=== PATIENT | female | born 1955 | race Caucasian/White ===

== ENCOUNTER → 2016-11-16 | Outpatient (CLI) | payer MEDICAID ==
[2016-11-16 10:32] VITALS: BP 146/73; PULSE 66; RESP 15; TEMP 97.9; BMI 58.3
--- NOTE | 2016-11-16 10:47 | P.HPBAR ---
Bariatric H&P - History & Physicial H&P Date: 11/16/16 History & Physicial: Visit/CC: band fill Patient initial contact: Initial weight: 139.117 kg Initial weight in pounds: 306.70 Height: 5 ft 1 in Initial BMI: 57.9 Last weight: Current weight: 139.979 kg Current weight in pounds: 308.60 Current BMI: 58.3 [place] body weight (based on NIH guidelines): 47.627 kg Excess body weight loss: The patient is a 61 year-old F who presents for Bariatric Assessment. The patient presents today for lap band fill. She currently feels hungry. Past Medical History Past Medical History: Asthma, GERD/Reflux, Hypertension, Sleep Apnea/CPAP/BIPAP , Thyroid Disorder Additional Past Medical History / Comment(s): left knee injury w/torn tendon and steroid injection, hypothroid, gout, uses CPAP, past hx. arrythmia-no tx. needed (March 2016 asthma exacarbation led to ER and then PCP f/u), dry eyes History of Any Multi-Drug Resistant Organisms: None Reported Past Surgical History: Bariatric Surgery, Hernia Repair, Orthopedic Surgery Additional Past Surgical History / Comment(s): lapband placed 2002, ganglian cyst, carpal tunnel, tear duct surgery 2017 secondary to dry eyes Past Anesthesia/Blood Transfusion Reactions: Previous Problems w/ Anesthesia Additional Past Anesthesia/Blood Transfusion Reaction / Comm: slow to wake up from anesthesia Past Psychological History: No Psychological Hx Reported Smoking Status: Never smoker Past Alcohol Use History: Rare Past Drug Use History: None Reported - Past Family History Mother Family Medical History: Cancer, Hypertension Additional Family Medical History / Comment(s): cancer in lymph nodes, Surgical - Exam Vital Signs Temp Pulse Resp BP 97.9 F 66 15 146/73 11/16/16 10:28 11/16/16 10:28 11/16/16 10:28 11/16/16 10:28 - General well developed, no distress - Eyes PERRL - ENT normal pinna - Neck no masses - Respiratory normal expansion - Cardiovascular Rhythm: regular - Abdomen Abdomen: soft, non tender Bariatric Assessment & Plan Plan: The patient's lap band was adjusted. She had 0.3 mL added to her LAP-BAND. She currently has 2.6 mL in the band. She'll follow-up in one month. Bariatric Checklist Checklist: Plan: Checklist: EGD: 1. Hiatal hernia: 2. H. Pylori: HgbA1c: Vitamin D: Smoking: Never smoker Primary care physician referral: Dr.Loretta Castillo ([place]) Psychiatry clearance: Cardiology clearance: Sleep study: Diet journal: VTE risk score: VTE risk level: Rehab needs at discharge:
== END | disposition home or self-care (01) ==
LOC: BARWHC3 10:02
PROVIDERS: ATTEND Surgery
DX: Z48.815 Encounter for surgical aftercare following surgery on the digestive system (principal); I10 Essential (primary) hypertension; Z98.84 Bariatric surgery status
CPT/HCPCS: 99212

== ENCOUNTER → 2017-11-22 | Outpatient (CLI) | payer MEDICAID ==
[2017-11-22 13:42] VITALS: BP 161/96; PULSE 64; RESP 16; TEMP 97.9; BMI 52.0
--- NOTE | 2017-11-22 17:05 | P.HPBAR ---
Bariatric H&P - History & Physicial H&P Date: 11/22/17 History & Physicial: Visit/CC: band adj Patient initial contact: Initial weight: 139.117 kg Initial weight in pounds: 306.70 Height: 5 ft 1 in Initial BMI: 57.9 Last weight: Current weight: 124.823 kg Current weight in pounds: 275.19 Current BMI: 52.0 [place] body weight (based on NIH guidelines): 47.627 kg Excess body weight loss: 15.6% The patient is a 62 year-old F who presents for Bariatric Assessment. The patient presents today for bariatric follow-up. She has lost 38 pounds her last visit. She has some mild GERD. Past Medical History Past Medical History: Asthma, GERD/Reflux, Hypertension, Sleep Apnea/CPAP/BIPAP , Thyroid Disorder Additional Past Medical History / Comment(s): left knee injury w/torn tendon and steroid injection, hypothroid, gout, uses CPAP, past hx. arrythmia-no tx. needed (March 2016 asthma exacarbation led to ER and then PCP f/u), dry eyes History of Any Multi-Drug Resistant Organisms: None Reported Past Surgical History: Bariatric Surgery, Hernia Repair, Orthopedic Surgery Additional Past Surgical History / Comment(s): lapband placed 2002, ganglian cyst, carpal tunnel, tear duct surgery 2016 secondary to dry eyes Past Anesthesia/Blood Transfusion Reactions: Previous Problems w/ Anesthesia Additional Past Anesthesia/Blood Transfusion Reaction / Comm: slow to wake up from anesthesia Past Psychological History: No Psychological Hx Reported Smoking Status: Never smoker Past Alcohol Use History: Rare Past Drug Use History: None Reported - Past Family History Mother Family Medical History: Cancer, Hypertension Additional Family Medical History / Comment(s): cancer in lymph nodes, Surgical - Exam Vital Signs Temp Pulse Resp BP 97.9 F 64 16 161/96 11/22/17 13:38 11/22/17 13:38 11/22/17 13:38 11/22/17 13:38 - General well developed, well nourished - Eyes PERRL - ENT normal pinna - Neck no masses - Respiratory normal expansion - Cardiovascular Rhythm: regular - Abdomen Abdomen: soft, non tender Bariatric Assessment & Plan Plan: Morbid obesity. Patient LAP-BAND was not adjusted. Her GERD symptoms are minimal she'll be observed. Patient was asking for referral to orthopedic surgeon I gave her the name of Dr. Desi Olivier. She'll follow-up in 8 weeks. Bariatric Checklist Checklist: Plan: Checklist: EGD: 1. Hiatal hernia: 2. H. Pylori: HgbA1c: Vitamin D: Smoking: Never smoker Primary care physician referral: Dr.Loretta Castillo ([place]) Psychiatry clearance: Cardiology clearance: Sleep study: Diet journal: VTE risk score: VTE risk level: Rehab needs at discharge:
== END | disposition home or self-care (01) ==
LOC: BARWHC3 12:57
PROVIDERS: ATTEND Surgery
DX: Z46.51 Encounter for fitting and adjustment of gastric lap band (principal); E66.01 Morbid (severe) obesity due to excess calories; G47.30 Sleep apnea, unspecified; I10 Essential (primary) hypertension; J45.909 Unspecified asthma, uncomplicated; Z98.84 Bariatric surgery status; Z99.89 Dependence on other enabling machines and devices; Z68.43 Body mass index [BMI] 50.0-59.9, adult
CPT/HCPCS: 97803; 99212

== ENCOUNTER → 2018-01-31 | Outpatient (CLI) | payer MEDICAID ==
--- NOTE | 2018-01-31 13:51 | P.HPBAR ---
Bariatric H&P - History & Physicial H&P Date: 01/31/18 History & Physicial: Visit/CC: Patient initial contact: Initial weight: 139.117 kg Initial weight in pounds: Height: Initial BMI: Last weight: Current weight: Current weight in pounds: Current BMI: [place] body weight (based on NIH guidelines): Excess body weight loss: The patient is a 62 year-old F who presents for Bariatric Assessment. Patient presents today for LAP-BAND adjustment. She states that she may need a small fill. The patient is fairly scheduled for left knee arthroscopy in 2 weeks. She has lost 6 pounds since her last visit. Past Medical History Past Medical History: Asthma, GERD/Reflux, Hypertension, Sleep Apnea/CPAP/BIPAP , Thyroid Disorder Additional Past Medical History / Comment(s): left knee injury w/torn tendon and steroid injection, hypothroid, gout, uses CPAP, past hx. arrythmia-no tx. needed (March 2016 asthma exacarbation led to ER and then PCP f/u), dry eyes History of Any Multi-Drug Resistant Organisms: None Reported Past Surgical History: Bariatric Surgery, Hernia Repair, Orthopedic Surgery Additional Past Surgical History / Comment(s): lapband placed 2002, ganglian cyst, carpal tunnel, tear duct surgery 2017 secondary to dry eyes Past Anesthesia/Blood Transfusion Reactions: Previous Problems w/ Anesthesia Additional Past Anesthesia/Blood Transfusion Reaction / Comm: slow to wake up from anesthesia Past Psychological History: No Psychological Hx Reported Smoking Status: Never smoker Past Alcohol Use History: Rare Past Drug Use History: None Reported - Past Family History Mother Family Medical History: Cancer, Hypertension Additional Family Medical History / Comment(s): cancer in lymph nodes, Surgical - Exam - General well developed, no distress - Eyes PERRL - ENT normal pinna - Abdomen Abdomen: soft, non tender Bariatric Assessment & Plan Plan: Morbid obesity. Osteoarthritis. Patient's BMI is still over 40. Her LAP-BAND was not adjusted today due to her upcoming left knee arthroscopy. She'll follow -up in one month. Bariatric Checklist Checklist: Plan: Checklist: EGD: 1. Hiatal hernia: 2. H. Pylori: HgbA1c: Vitamin D: Smoking: Never smoker Primary care physician referral: Dr.Loretta Castillo ([place]) Psychiatry clearance: Cardiology clearance: Sleep study: Diet journal: VTE risk score: VTE risk level: Rehab needs at discharge:
[2018-01-31 16:09] VITALS: BP 148/78; PULSE 75; TEMP 98.6; BMI 50.8
== END | disposition home or self-care (01) ==
LOC: BARWHC3 12:47
PROVIDERS: ATTEND Surgery
DX: Z46.51 Encounter for fitting and adjustment of gastric lap band (principal); E66.01 Morbid (severe) obesity due to excess calories; K21.9 Gastro-esophageal reflux disease without esophagitis; M19.90 Unspecified osteoarthritis, unspecified site; G47.30 Sleep apnea, unspecified; S89.92XS Unspecified injury of left lower leg, sequela; J45.909 Unspecified asthma, uncomplicated; Z79.52 Long term (current) use of systemic steroids; Z98.84 Bariatric surgery status; Z98.890 Other specified postprocedural states; Z99.89 Dependence on other enabling machines and devices; Z68.41 Body mass index [BMI] 40.0-44.9, adult
CPT/HCPCS: 99211

== ENCOUNTER → 2018-01-31 | Outpatient (CLI) | payer MEDICAID ==
[2018-01-31 14:06] LABS: Basophils % (A) 0 %; Eosinophils # (A) 0.1 k/uL (0-0.7); Eosinophils % (A) 2 %; HCT 41.8 % (34.0-46.0); HGB 13.3 gm/dL (11.4-16.0); Lymphocytes # (A) 1.8 k/uL (1.0-4.8); Lymphocytes % (A) 34 %; MCH 29.1 pg (25.0-35.0); MCHC 31.9 g/dL (31.0-37.0); MCV 91.3 fL (80.0-100.0); Mean Platelet Volume 7.8; Monocytes # (A) 0.4 k/uL (0-1.0); Monocytes % (A) 7 %; Neutrophils # (A) 2.9 k/uL (1.3-7.7); Neutrophils % (A) 54 %; Platelet Count 223 k/uL (150-450); RBC 4.58 m/uL (3.80-5.40); RDW 14.7 % (11.5-15.5); WBC 5.4 k/uL (3.8-10.6)
[2018-01-31 14:18] LABS: Potassium 4.3 mmol/L (3.5-5.1)
== END | disposition home or self-care (01) ==
LOC: LABPAT 12:19
PROVIDERS: ATTEND Orthopaedic Surgery
DX: Z01.818 Encounter for other preprocedural examination (principal); Z01.812 Encounter for preprocedural laboratory examination; M23.92 Unspecified internal derangement of left knee
CPT/HCPCS: 36415; 80051; 85025; 93005

== ENCOUNTER 2018-02-17 09:18 | Day surgery (SDC) | payer MEDICAID ==
[2018-02-11 12:02] VITALS: BMI 52.3
--- NOTE | 2018-02-16 18:23 | HP ---
HISTORY AND PHYSICAL DATE OF SURGERY: 02/17/2018 Kaylee Mark is a 62-year-old patient seen with progressive left knee pain. We discussed treatment options with her. She elected to proceed with arthroscopy. Consent was obtained. PAST MEDICAL HISTORY: 1. Asthma. 2. Hypertension. 3. Hypothyroidism. PAST SURGICAL HISTORY: 1. Cholecystectomy. 2. Hand surgery. 3. Lap band surgery. DAILY MEDICATIONS: 1. Advair. 2. Allopurinol. 3. Levothyroxine. 4. Lisinopril. ALLERGIES: CODEINE. SOCIAL HISTORY: Patient denies tobacco use. PHYSICAL EVALUATION OF THE LEFT KNEE: Range of motion is 0 to 120 degrees. Mild effusion is present. There is tenderness along the medial and lateral joint lines. Positive medial Saravanan's. Positive lateral Saravanan's. Ligaments are stable. Hip rotation is without pain. Distal neurovascular exam is intact. RADIOGRAPHS: Left knee radiographs reveal mild osteoarthritis. Left knee MRI revealed medial and lateral meniscal tears and osteoarthritic changes. IMPRESSION: 1. Internal derangement of left knee with medial and lateral meniscal tears. 2. Hypertension. 3. Hypothyroidism. 4. Asthma. PLAN: Left knee arthroscopy with partial meniscectomy and debridement. MMODL / IJN: [id number] /
[~2018-02-17 09:18] MED LIST: DEXAMETHASONE SOD PHOSPHATE 10 MG/ML 1 ML VIAL IV ONE; LACTATED RINGERS 1,000 ML IV SCH; ONDANSETRON 4 MG/2 ML VIAL IVP ONE
[2018-02-17] MEDS ORDERED: FAMOTIDINE 20 MG/2 ML VIAL ONE (10:09)
[2018-02-17] MEDS ORDERED: LIDOCAINE 1% 20 ML VIAL (10MG/ML) FOR IV START INTRADERMA ONE (10:29)
[2018-02-17] MEDS ORDERED: PROPOFOL 10 MG/ML 20 ML VIAL IV ONE (10:49)
[2018-02-17] MEDS ORDERED: HYDROmorphone (PF) 1 MG/ML ONE (10:49)
[2018-02-17] MEDS ORDERED: MIDAZOLAM 2 MG/2 ML VIAL ONE (10:49)
[2018-02-17] MEDS ORDERED: SUCCINYLCHOLINE CHLORIDE 100 MG/5 ML SYR IV ONE (10:49)
[2018-02-17] MEDS ORDERED: fentaNYL (PF) 50 MCG/ML 2 ML AMP ONE (10:49)
[2018-02-17] MEDS ORDERED: LIDOCAINE 1% INJ 10MG/ML (20 ML MDV) ONE (10:49)
[2018-02-17] MEDS ORDERED: BUPIVACAINE (PF) 0.5% 30 ML VIAL INTRAARTIC ONE (11:07)
--- NOTE | 2018-02-17 11:39 | P.OP ---
Date of Procedure: 02/17/18 Preoperative Diagnosis: Internal derangement left knee Postoperative Diagnosis: 1. Medial lateral meniscal tears left knee 2. Reactive synovitis medial, lateral and suprapatellar compartments left knee 3. Grade 3/4 chondromalacia medial femoral condyle left knee 4. Grade 2 chondromalacia lateral tibial plateau left knee Procedure(s) Performed: 1. Arthroscopic partial medial and lateral meniscectomy left knee 2. Arthroscopic partial synovectomy medial, lateral and suprapatellar compartments left knee 3. Arthroscopic chondroplasty medial femoral condyle left knee 4. Arthroscopic chondroplasty lateral tibial plateau left knee Anesthesia: HUA, local Surgeon: Hawk Olmstead Estimated Blood Loss (ml): 5 Pathology: none sent Condition: stable Disposition: PACU Indications for Procedure: 62-year-old patient seen with progressive left knee pain. After having treatment options discussed, she elected to proceed with arthroscopy. Operative Findings: see description of procedure Description of Procedure: Patient was taken to the operative suite. Patient underwent a general anesthetic by the department of anesthesia. Patient was given preoperative antibiotics. The left lower extremity was placed in a well-padded arthroscopic leg brink. The left leg was prepped and draped in the normal sterile orthopedic fashion. A lateral parapatellar and suprapatellar incision was made. Trochars were inserted. Arthroscopy was initiated. Suprapatellar pouch revealed diffuse thick reactive synovitis. The patellofemoral joint appeared to articulate congruently. There was grade 2/3 chondromalacia of the patella but no significant osteochondral tears were present. The scope was guided into the medial gutter. No loose bodies or plica was identified. The scope was then guided into the medial compartment. A medial parapatellar incision was made. Trocar inserted followed by probe. There was a complex tear involving the posterior horn and midbody of the medial meniscus. There were grade 3/4 chondromalacia changes the medial femoral condyle with some osteochondral tears present. There was an area of grade 4 chondromalacia along the medial border of the medial tibial plateau with exposed bone. There was thick reactive synovitis diffusely along the anterior aspect of the medial compartment. I performed a partial medial meniscectomy down to stable tissue. I performed a chondroplasty of the medial femoral condyle down to stable tissue. I performed a partial synovectomy decompressing the thick reactive synovitis along the anterior aspect of the medial compartment. The residual meniscus was stable. The residual osteochondral surface was stable. Scope and probe were then guided into the intercondylar notch. Cruciates were identified, probed and found to be stable. The scope and probe were then guided into lateral compartment. There was a complex tear involving the posterior horn and midbody of the lateral meniscus. There were some grade 2 chondromalacia changes of the tibial plateau with osteochondral tears and grade 2, changes of the femoral condyle. There was thick reactive synovitis diffusely along the anterior aspect lateral compartment. I performed a partial lateral meniscectomy down to stable tissue. I performed a chondroplasty of the tibial plateau down to stable tissue. I performed a partial synovectomy decompressing the thick reactive synovitis along the anterior aspect lateral compartment. The residual meniscus was stable. The residual osteochondral surface a stable. There was good decompression of the synovitis anteriorly the lateral compartment. The scope was in guided back into the suprapatellar compartment. I introduced a motorized shaver into the suprapatellar compartment. I debrided some piecemeal fragments of meniscus I encountered. I performed a partial synovectomy decompressing the thick reactive synovitis in the suprapatellar compartment. The shaver was removed. I now took onr more look around the entire knee, no residual debris. Instruments were now removed from the joint. The joint was infiltrated with .25% Marcaine. Steri-Strips were applied to the portal sites. Sterile dressings were applied. The patient was placed into a ABDI hose. No tourniquet was utilized. The patient was awakened, transferred to a bed and taken to recovery stable satisfactory condition.
[2018-02-17 11:41] VITALS: TEMP 97.5
[2018-02-17] MEDS ORDERED: ALBUTEROL NEBULIZED 2.5 MG/3 ML INHALATION ONE (12:17)
[2018-02-17] MEDS: HYDROmorphone 0.5 MG/0.5 ML SYRINGE IVP PRN ×2 (12:34→12:39)
--- NOTE | 2018-02-17 12:36 | XR ---
EXAMINATION TYPE: XR chest 1V portable DATE OF EXAM: 02/17/2018 COMPARISON: NONE HISTORY: Postop shortness of breath. TECHNIQUE: Single frontal view of the chest is obtained. FINDINGS: There is no focal air space opacity, pleural effusion, or pneumothorax seen. The cardiac silhouette size is upper limits of normal in size. The osseous structures are intact. IMPRESSION: No acute cardiopulmonary process.
[2018-02-17] MEDS: hydrALAZINE HCL 20 MG/ML 1 ML VIAL IVP ONE ×2 (12:48→12:57)
[2018-02-17 12:55] VITALS: RESP 16
[2018-02-17] MEDS ORDERED: HYDROcodone/APAP 5-325MG 1 EACH TAB PO ONE (13:36)
[2018-02-17 13:46] VITALS: BP 138/76; PULSE 86
== END 2018-02-17 14:25 | disposition home or self-care (01) ==
LOC: OR 09:18
PROVIDERS: ATTEND Orthopaedic Surgery
DX: S83.242A Other tear of medial meniscus, current injury, left knee, initial encounter (principal); S83.282A Other tear of lateral meniscus, current injury, left knee, initial encounter; X58.XXXA Exposure to other specified factors, initial encounter; M65.862 Other synovitis and tenosynovitis, left lower leg; M94.262 Chondromalacia, left knee; J45.909 Unspecified asthma, uncomplicated; K21.9 Gastro-esophageal reflux disease without esophagitis; E66.01 Morbid (severe) obesity due to excess calories; Z68.43 Body mass index [BMI] 50.0-59.9, adult; I10 Essential (primary) hypertension; E03.9 Hypothyroidism, unspecified; Z79.890 Hormone replacement therapy; Z79.51 Long term (current) use of inhaled steroids; Z79.899 Other long term (current) drug therapy; Z88.5 Allergy status to narcotic agent; Z88.1 Allergy status to other antibiotic agents
CPT/HCPCS: 29880; 71045; J2250; J0360; J1100; J0690; J2405; J2001; J3010; J1170 ×2; J0330; J2704

== ENCOUNTER → 2019-07-24 | Outpatient (CLI) | payer MEDICAID ==
[2019-07-24 14:03] VITALS: PULSE 81; TEMP 97.8; BMI 53.1
[2019-07-24 14:51] VITALS: BP 149/85
--- NOTE | 2019-08-28 15:37 | P.HPBAR ---
Bariatric H&P - History & Physicial H&P Date: 07/24/19 History & Physicial: Visit/CC: lap band follow up Patient initial contact: Initial weight: 139.117 kg Initial weight in pounds: 306.70 Height: 5 ft 1 in Initial BMI: 57.9 Last weight: Current weight: 127.459 kg Current weight in pounds: 281.00 Current BMI: 53.1 [place] body weight (based on NIH guidelines): 47.627 kg Excess body weight loss: 12.7% The patient is a 64 year-old F who presents for Bariatric Assessment. Patient has safer LAP-BAND follow-up. She currently is hungry and requesting a fill. Past Medical History Past Medical History: Asthma, GERD/Reflux, Hypertension, Sleep Apnea/CPAP/BIPAP, Thyroid Disorder Additional Past Medical History / Comment(s): left knee injury w/torn tendon and steroid injection, hypothroid, gout, uses CPAP, past hx. arrythmia-no tx. needed (March 2016 asthma exacarbation led to ER and then PCP f/u), dry eyes History of Any Multi-Drug Resistant Organisms: None Reported Past Surgical History: Bariatric Surgery, Hernia Repair, Orthopedic Surgery Additional Past Surgical History / Comment(s): lapband placed 2002, ganglian cyst, carpal tunnel, tear duct surgery 2016 secondary to dry eyes left knee arthroscopy 02-24 Past Anesthesia/Blood Transfusion Reactions: Previous Problems w/ Anesthesia Additional Past Anesthesia/Blood Transfusion Reaction / Comm: slow to wake up from anesthesia Smoking Status: Never smoker - Past Family History Mother Family Medical History: Cancer, Hypertension Additional Family Medical History / Comment(s): cancer in lymph nodes, Surgical - Exam Vital Signs Temp Pulse BP 97.8 F 81 136/80 07/24/19 13:56 07/24/19 13:56 07/24/19 13:56 - General well developed, well nourished, no distress - Eyes PERRL - ENT normal pinna - Neck no masses - Respiratory normal expansion - Cardiovascular Rhythm: regular - Abdomen Abdomen: soft, non tender Bariatric Assessment & Plan Plan: Patient's lap band was adjusted. She'll 0.5 mL added to her band. She currently is 3.1 mL his band. She will follow-up in 4 weeks. Bariatric Checklist Checklist: Plan: Checklist: EGD: 1. Hiatal hernia: 2. H. Pylori: HgbA1c: Vitamin D: Smoking: Never smoker Primary care physician referral: Dr.Loretta Castillo ([place]) Psychiatry clearance: Cardiology clearance: Sleep study: Diet journal: VTE risk score: VTE risk level: Rehab needs at discharge:
== END | disposition home or self-care (01) ==
LOC: BARWHC3 12:43
PROVIDERS: ATTEND Surgery
DX: Z46.51 Encounter for fitting and adjustment of gastric lap band (principal); E66.01 Morbid (severe) obesity due to excess calories; Z68.43 Body mass index [BMI] 50.0-59.9, adult; Z98.84 Bariatric surgery status
CPT/HCPCS: 97803; 99212

== ENCOUNTER → 2019-10-13 | Outpatient (CLI) | payer MEDICAID ==
[2019-10-13 10:25] VITALS: BP 169/88; PULSE 76; TEMP 98; BMI 51.2
--- NOTE | 2019-10-13 12:16 | FL ---
EXAMINATION TYPE: FL barium swallow DATE OF EXAM: 10/13/2019 CLINICAL HISTORY: Gastric lap and placed [address] of the chest with possible Zenker' s diverticulum. Dysphagia. All fluid was removed from the lap band prior to the procedure by the surg carisa. TECHNIQUE: A single contrast esophagram is performed utilizing barium only. A total of 1.26 minutes of fluoroscopic time was utilized during procedure. 32 fluoroscopic images were saved. COMPARISON: None FINDINGS: The esophagus shows abnormal motility with delayed emptying into the stomach. A large amoun t of contrast displays stasis in the distal esophagus despite prolonged imaging. The esophagus is pat ulous and dilated with esophageal wall irregularity throughout. No Zenker's diverticulum is identifie d on the exam. IMPRESSION: Partial obstruction at the gastroesophageal junction just above the lap band resulting in a dilated proximal esophagus with marked esophageal stasis. Esophageal wall irregularity is also see n, esophagitis or small ulcers are possible. Direct visualization is recommended for both findings.
--- NOTE | 2019-10-13 14:03 | P.HPBAR ---
Bariatric H&P - History & Physicial H&P Date: 10/13/19 History & Physicial: Visit/CC: lap band follow up Patient initial contact: Initial weight: 139.117 kg Initial weight in pounds: 306.70 Height: 5 ft 1 in Initial BMI: 57.9 Last weight: Current weight: 122.924 kg Current weight in pounds: 271.00 Current BMI: 51.2 [place] body weight (based on NIH guidelines): 47.627 kg Excess body weight loss: 17.6% The patient is a 64 year-old F who presents for Bariatric Assessment. The patient's had problems dysphagia. Her recent CAT scan shows a dilated esophagus with a large amount of food debris within the esophagus and a possible Zenker's diverticulum. Patient's had trouble with night cough for several months Past Medical History Past Medical History: Asthma, GERD/Reflux, Hypertension, Sleep Apnea/CPAP/BIPAP, Thyroid Disorder Additional Past Medical History / Comment(s): left knee injury w/torn tendon and steroid injection, hypothroid, gout, uses CPAP, past hx. arrythmia-no tx. needed (March 2016 asthma exacarbation led to ER and then PCP f/u), dry eyes History of Any Multi-Drug Resistant Organisms: None Reported Past Surgical History: Bariatric Surgery, Hernia Repair, Orthopedic Surgery Additional Past Surgical History / Comment(s): lapband placed 2002, ganglian cyst, carpal tunnel, tear duct surgery 2017 secondary to dry eyes left knee arthroscopy 7-19 Past Anesthesia/Blood Transfusion Reactions: Previous Problems w/ Anesthesia Additional Past Anesthesia/Blood Transfusion Reaction / Comm: slow to wake up from anesthesia Past Psychological History: No Psychological Hx Reported Smoking Status: Never smoker Past Alcohol Use History: Rare Past Drug Use History: None Reported - Past Family History Mother Family Medical History: Cancer, Hypertension Additional Family Medical History / Comment(s): cancer in lymph nodes, Surgical - Exam Vital Signs Temp Pulse BP 98.0 F 76 169/88 10/13/19 09:58 10/13/19 09:58 10/13/19 09:58 - General well developed, well nourished, no distress - Eyes PERRL - ENT normal pinna - Neck no masses - Respiratory normal expansion - Cardiovascular Rhythm: regular - Abdomen Abdomen: soft, non tender Bariatric Assessment & Plan Plan: The patient LAP-BAND was empty. 3.5 mL was removed with the band. Patient undergo esophagram today. We'll scheduled for EGD next week. Bariatric Checklist Checklist: Plan: Checklist: EGD: 1. Hiatal hernia: 2. H. Pylori: HgbA1c: Vitamin D: Smoking: Never smoker Primary care physician referral: Dr.Loretta Castillo ([place]) Psychiatry clearance: Cardiology clearance: Sleep study: Diet journal: VTE risk score: VTE risk level: Rehab needs at discharge:
== END | disposition home or self-care (01) ==
LOC: BARWHC3 09:55
PROVIDERS: ATTEND Surgery
DX: Z46.51 Encounter for fitting and adjustment of gastric lap band (principal); Z98.84 Bariatric surgery status
CPT/HCPCS: 74220; 99212

== ENCOUNTER 2019-10-20 | Day surgery (SDC) | payer MEDICAID | END 2019-10-20 10:18 | disposition home or self-care (01) | CPT/HCPCS: 88305; 43239; J2001; J2704 ==

== ENCOUNTER → 2020-01-26 | Outpatient (CLI) | payer MEDICAID ==
[2020-01-26 12:55] LABS: Basophils % (A) 0 %; Eosinophils # (A) 0.2 k/uL (0-0.7); Eosinophils % (A) 4 %; HCT 41.1 % (34.0-46.0); HGB 12.7 gm/dL (11.4-16.0); Lymphocytes # (A) 1.7 k/uL (1.0-4.8); Lymphocytes % (A) 31 %; MCHC 30.9 g/dL (31.0-37.0); MCV 93.9 fL (80.0-100.0); Mean Platelet Volume 8.3; Monocytes # (A) 0.4 k/uL (0-1.0); Monocytes % (A) 7 %; Neutrophils % (A) 55 %; Platelet Count 178 k/uL (150-450); RBC 4.37 m/uL (3.80-5.40); RDW 14.4 % (11.5-15.5); WBC 5.4 k/uL (3.8-10.6)
[2020-01-26 13:20] LABS: Potassium 4.7 mmol/L (3.5-5.1)
== END | disposition home or self-care (01) ==
LOC: LABPAT 12:20
PROVIDERS: ATTEND Orthopaedic Surgery
DX: Z01.818 Encounter for other preprocedural examination (principal); M23.91 Unspecified internal derangement of right knee
CPT/HCPCS: 36415; 80051; 85025; 93005

== ENCOUNTER 2020-02-01 13:30 | Day surgery (SDC) | payer MEDICAID ==
--- NOTE | 2020-01-31 14:10 | HP ---
HISTORY AND PHYSICAL Surgery is 02/01/2020 Kaylee Mark is a 64-year-old patient seen with progressive right knee pain. We discussed options arthroscopy. Consent regarding the procedure was obtained. PAST MEDICAL HISTORY: Asthma, hypothyroidism, hypertension. PAST SURGICAL HISTORY: Cholecystectomy and hand surgery, lap band surgery. MEDICATIONS: Advair, levothyroxine, losartan. ALLERGIES: CODEINE. SOCIAL HISTORY: She denies tobacco use. PHYSICAL EXAMINATION: Evaluation of the right knee range of motion is -2/3-120. Tenderness along the medial and lateral joint lines. Positive medial Saravanan's. Positive lateral Saravanan's. Ligaments stable. Hip rotation without pain. Distal neurovascular exam is intact. Radiographs of the right knee reveal moderate osteoarthritis involving all 3 compartments. IMPRESSION: 1. Internal derangement, right knee with meniscal tear. 2. Right knee osteoarthritis. 3. Hypertension. 4. Hypothyroidism. PLAN: Right knee arthroscopy with partial meniscectomy, partial synovectomy and debridement. MMODL / IJN: [id number] /
[2020-01-31 14:11] VITALS: BMI 52.9
[~2020-02-01 13:30] MED LIST changes: +MIDAZOLAM 2 MG/2 ML VIAL IV PRN; +ceFAZolin 3 GM in SODIUM CHLORIDE 0.9% 100 ML IVPB ONE
[2020-02-01 13:52] VITALS: TEMP 97.4
[2020-02-01] MEDS ORDERED: ONDANSETRON 4 MG/2 ML VIAL ONE (13:58)
[2020-02-01] MEDS ORDERED: LIDOCAINE 1% (10MG/ML) FOR IV START INTRADERMA ONE (14:06)
[2020-02-01] MEDS ORDERED: PROPOFOL 10 MG/ML 20 ML VIAL IV ONE (16:00)
[2020-02-01] MEDS ORDERED: MIDAZOLAM 2 MG/2 ML VIAL ONE (16:00)
[2020-02-01] MEDS ORDERED: fentaNYL (PF) 50 MCG/ML 2 ML AMP ONE (16:00)
[2020-02-01] MEDS ORDERED: LIDOCAINE 1% INJ 10MG/ML (20 ML MDV) ONE (16:00)
[2020-02-01] MEDS ORDERED: SUCCINYLCHOLINE CHLORIDE 100 MG/5 ML SYR IV ONE (16:00)
[2020-02-01] MEDS ORDERED: hydrALAZINE HCL 20 MG/ML 1 ML VIAL ONE (16:00)
[2020-02-01] MEDS ORDERED: BUPIVACAIN-EPI 0.25%-1:200,000 30 ML VIAL INTRAARTIC ONE (16:34)
--- NOTE | 2020-02-01 17:02 | P.OP ---
Date of Procedure: 02/01/20 Preoperative Diagnosis: Internal derangement right knee Postoperative Diagnosis: 1. Tear medial meniscus right knee 2. Grade 3/4 chondromalacia medial femoral condyle right knee 3. Reactive synovitis medial, lateral and suprapatellar compartments right knee Procedure(s) Performed: 1. Arthroscopic partial medial meniscectomy right knee 2. Arthroscopic chondroplasty medial femoral condyle right knee 3. Arthroscopic partial synovectomy medial, lateral and suprapatellar compartments right knee Anesthesia: GETA, local Surgeon: Hawk Olmstead Estimated Blood Loss (ml): 10 Pathology: none sent Condition: stable Disposition: PACU Indications for Procedure: 64-year-old patient seen with progressive right knee pain. After treatment options were discussed, she elected to proceed with arthroscopy. Operative Findings: See description of procedure Description of Procedure: Patient was taken to the operative suite. Patient underwent a general anesthetic by the department of anesthesia. Patient was given preoperative antibiotics. The right lower extremity was placed in a well-padded arthroscopic leg brink. The I leg was prepped and draped in the normal sterile orthopedic fashion. A lateral parapatellar and suprapatellar incision was made. Trochars were inserted. Arthroscopy was initiated. Suprapatellar pouch revealed diffuse thick reactive synovitis. The patellofemoral joint appeared to articulate c ongruently. There was grade 4 chondromalacia of both the patella and femoral sulcus with large areas of eburnated bone. The scope was guided into the medial gutter. No loose bodies or plica were identified. The scope was then guided into the medial compartment. A medial parapatellar incision was made. Trocar inserted followed by probe. Was a complex tear posterior horn medial meniscus. There were grade 3/4 chondromalacia changes the medial femoral condyle with large osteochondral flap tears present. There was thick reactive synovitis anteriorly. I performed a partial medial meniscectomy. I performed a chondroplasty of the medial femoral condyle. I performed a partial synovectomy decompressing reactive synovitis. The residual meniscus was stable. The residual osteochondral surface was stable again noted grade 3/4 chondromalacia. There was good decompression of synovitis. Scope and probe were then guided into the intercondylar notch. Cruciates were identified, probed and found to be stable. The scope and probe were then guided into lateral compartment. There was some mild fraying of the lateral meniscus midbody area. There was thick reactive synovitis anteriorly. I performed a partial synovectomy decompressing reactive synovitis. There was good decompression of synovitis. The scope was in guided back into the suprapatellar compartment. Introduced a motorized shaver into the super compartment. I debrided some piecemeal fragments of meniscus I encountered. I performed a partial synovectomy decompressing the reactive synovitis. There was good decompression of synovitis. I took one more look on the entire knee, no residual debris. Instruments were now removed from the joint. The joint was infiltrated with .25% Marcaine. Steri-Strips were applied to the portal sites. Sterile dressings were applied. The patient was placed into a ABDI hose. No tourniquet was utilized. The patient was awakened, transferred to a bed and taken to recovery stable satisfactory condition.
[2020-02-01] MEDS: HYDROmorphone 0.5 MG/0.5 ML SYRINGE IVP PRN ×2 (17:03→17:08)
[2020-02-01 17:21] VITALS: RESP 16
[2020-02-01] MEDS ORDERED: KETOROLAC 30 MG/ML 1 ML VIAL IVP ONE (17:24)
[2020-02-01] MEDS ORDERED: HYDROcodone/APAP 5-325MG 1 EACH TAB ONE (17:59)
[2020-02-01] MEDS ORDERED: HYDROcodone/APAP 5-325MG 1 EACH TAB PO ONE (18:00)
[2020-02-01 18:09] VITALS: BP 160/74; PULSE 91
== END 2020-02-01 18:49 | disposition home or self-care (01) ==
LOC: OR 13:30
PROVIDERS: ATTEND Orthopaedic Surgery
DX: S83.231A Complex tear of medial meniscus, current injury, right knee, initial encounter (principal); M94.261 Chondromalacia, right knee; M65.9 Synovitis and tenosynovitis, unspecified; I10 Essential (primary) hypertension; J45.909 Unspecified asthma, uncomplicated; E03.9 Hypothyroidism, unspecified; M17.11 Unilateral primary osteoarthritis, right knee; G47.33 Obstructive sleep apnea (adult) (pediatric); E66.01 Morbid (severe) obesity due to excess calories; M10.9 Gout, unspecified; Z98.84 Bariatric surgery status; Z88.5 Allergy status to narcotic agent; Z88.1 Allergy status to other antibiotic agents; Z99.89 Dependence on other enabling machines and devices; Z79.890 Hormone replacement therapy; Z90.49 Acquired absence of other specified parts of digestive tract; Z79.1 Long term (current) use of non-steroidal anti-inflammatories (NSAID); Z79.51 Long term (current) use of inhaled steroids; Z79.899 Other long term (current) drug therapy; Z68.43 Body mass index [BMI] 50.0-59.9, adult; X58.XXXA Exposure to other specified factors, initial encounter
CPT/HCPCS: 29881; 29876; J2250; J0360; J1100; J0690; J2405; J2001; J3010; J1885; J0330; J2704; J1170

== ENCOUNTER 2020-05-27 07:10 | Day surgery (SDC) | payer MEDICAID ==
[2020-05-22 16:01] VITALS: BMI 54.6
[~2020-05-27 07:10] MED LIST changes: -DEXAMETHASONE SOD PHOSPHATE 10 MG/ML 1 ML VIAL IV ONE; -LACTATED RINGERS 1,000 ML IV SCH; -MIDAZOLAM 2 MG/2 ML VIAL IV PRN; -ONDANSETRON 4 MG/2 ML VIAL IVP ONE
[2020-05-27] MEDS ORDERED: HYDROmorphone 0.5 MG/0.5 ML SYRINGE IVP PRN (07:26)
[2020-05-27] MEDS ORDERED: DEXAMETHASONE SOD PHOSPHATE 10 MG/ML 1 ML VIAL IV ONE (07:26)
[2020-05-27] MEDS ORDERED: LACTATED RINGERS 1,000 ML IV SCH (07:26)
[2020-05-27] MEDS ORDERED: ONDANSETRON 4 MG/2 ML VIAL IVP ONE (07:26)
[2020-05-27] MEDS ORDERED: LIDOCAINE 1% (10MG/ML) FOR IV START INTRADERMA ONE (07:40)
[2020-05-27] MEDS ORDERED: LACTATED RINGERS 1,000 ML IV ONE ×3 (07:47→10:13)
[2020-05-27] MEDS ORDERED: HEPARIN SODIUM,PORCINE 5,000 UNIT/ML 1 ML VIAL SQ ONE (08:26)
--- NOTE | 2020-05-27 08:32 | P.GSHP ---
History of Present Illness H&P Date: 05/27/20 Chief Complaint: Dysphagia This a 64-year-old female who's had issues with dysphagia. Patient presents today for removal of LAP-BAND system Past Medical History Past Medical History: Asthma, GERD/Reflux, Hypertension, Osteoarthritis (OA), Sleep Apnea/CPAP/BIPAP, Thyroid Disorder Additional Past Medical History / Comment(s): gout, past hx. arrhythmia, arthritis, has cpap History of Any Multi-Drug Resistant Organisms: None Reported Past Surgical History: Bariatric Surgery, Cholecystectomy, Orthopedic Surgery Additional Past Surgical History / Comment(s): lapband 2003, ganglion cyst left hand, carpal tunnel , tear duct surgery 2017 secondary to dry eyes, left knee arthroscopy. bhavna cataracts Past Anesthesia/Blood Transfusion Reactions: Previous Problems w/ Anesthesia Additional Past Anesthesia/Blood Transfusion Reaction / Comment(s): slow to wake up from anesthesia Smoking Status: Never smoker - Past Family History Mother Family Medical History: Cancer Additional Family Medical History / Comment(s): cancer in lymph nodes, Medications and Allergies Home Medications Medication Instructions Recorded Confirmed Type Fluticasone/Salmeterol [Advair 1 inhalation PO BID 11/18/15 05/22/20 History 250-50 Diskus] allopurinoL [Zyloprim] 300 mg PO HS 11/18/15 05/22/20 History Losartan Potassium 150 mg PO HS 10/13/19 05/22/20 History Albuterol Inhaler (Mhu) [Ventolin 1 - 2 puff INHALATION RT-Q6H PRN 10/17/19 05/22/20 History Hfa Inhaler] Colchicine [Colcrys] 0.6 mg PO DIRECTED PRN 10/17/19 05/22/20 History Levothyroxine Sodium [Synthroid] 150 mcg PO QAM 10/17/19 05/22/20 History Multivitamins, Thera [Multivitamin 1 tab PO DAILY 10/17/19 05/22/20 History (formulary)] Allergies Allergy/AdvReac Type Severity Reaction Status Date / Time codeine Allergy Nausea & Verified 05/22/20 15:48 Vomiting clindamycin AdvReac Diarrhea Verified 05/22/20 15:48 Surgical - Exam Vital Signs Temp Pulse Resp BP Pulse Ox 98.3 F 66 18 157/79 95 05/27/20 07:33 05/27/20 07:33 05/27/20 07:33 05/27/20 07:33 05/27/20 07:33 - General well developed, well nourished - Eyes PERRL - ENT normal pinna - Neck no masses - Respiratory normal expansion - Cardiovascular Rhythm: regular - Abdomen Abdomen: soft, non tender Assessment and Plan Assessment: History of dysphagia. We'll perform removal of LAP-BAND system.
[2020-05-27] MEDS ORDERED: SUCCINYLCHOLINE CHLORIDE 100 MG/5 ML SYR IV ONE (08:48)
[2020-05-27] MEDS ORDERED: fentaNYL (PF) 50 MCG/ML 2 ML AMP ONE (08:48)
[2020-05-27] MEDS ORDERED: ROCURONIUM 10 MG/ML (10 ML VIAL) IV ONE (08:48)
[2020-05-27] MEDS ORDERED: MIDAZOLAM 2 MG/2 ML VIAL ONE (08:48)
[2020-05-27] MEDS ORDERED: KETOROLAC 15 MG/ML 1 ML VIAL ONE (08:48)
[2020-05-27] MEDS ORDERED: NEOSTIGMINE 1 MG/ML 10 ML VIAL ONE (08:48)
[2020-05-27] MEDS ORDERED: PROPOFOL 10 MG/ML 20 ML VIAL IV ONE (08:48)
[2020-05-27] MEDS ORDERED: GLYCOPYRROLATE 0.2 MG/ML 2 ML VIAL ONE (08:48)
[2020-05-27] MEDS ORDERED: BUPIVACAINE (PF) 0.25% 30 ML VIAL SQ ONE (08:56)
--- NOTE | 2020-05-27 09:47 | P.OP ---
Date of Procedure: 05/27/20 Preoperative Diagnosis: Dysphagia . GERD Postoperative Diagnosis: Dysphagia GERD Procedure(s) Performed: Laparoscopic removal of LAP-BAND system Anesthesia: ROBEL Surgeon: Filiberto Riley Estimated Blood Loss (ml): 10 Pathology: other (LAP-BAND) Condition: stable Disposition: PACU Description of Procedure: The patient's placed on the operative table in the supine position. She received general anesthesia. Her abdomen was then prepped and draped usual sterile fashion. The skin incision sites were anesthetized 1% local Xylocaine. Using a 11 blade the skin was incised at the LAP-BAND port site and then using electrocautery LAP-BAND port was dissected free. The PEG tube was then cut and the port was removed. Using a 5 ohmmeter optical trocar the peritoneal cavity entered and then the abdomen was insufflated after adequate insufflation a 15 mm trocar is placed. Cavity. And then the laparoscope placed. Cavity. Next a 5 mm trochars placed in the right upper quadrant right lateral position left lateral position and the left. Local position. The LAP-BAND device was seen. The adhesions Tiffanie device were then lysed using left cautery. The LAP-BAND was then cut To the buckle and withdrawn from the stomach. The LAP-BAND device and removed through the 15 mm trocar site. There is no bleeding seen. The trochars were removed. The skin was closed interrupted 3-0 Monocryl suture. Dermabond was applied. Patient top she will was sent to recovery room in stable condition.
[2020-05-27 09:56] VITALS: TEMP 97.9
[2020-05-27 11:02] VITALS: RESP 16
[2020-05-27 12:33] VITALS: BP 144/71; PULSE 51
== END 2020-05-27 12:34 | disposition home or self-care (01) ==
LOC: OR 07:10
PROVIDERS: ATTEND Surgery
DX: R13.10 Dysphagia, unspecified (principal); K21.9 Gastro-esophageal reflux disease without esophagitis; I10 Essential (primary) hypertension; J45.909 Unspecified asthma, uncomplicated; M19.90 Unspecified osteoarthritis, unspecified site; G47.33 Obstructive sleep apnea (adult) (pediatric); E07.9 Disorder of thyroid, unspecified; M10.9 Gout, unspecified; E66.01 Morbid (severe) obesity due to excess calories; Z99.89 Dependence on other enabling machines and devices; Z90.49 Acquired absence of other specified parts of digestive tract; Z98.84 Bariatric surgery status; Z98.890 Other specified postprocedural states; Z98.41 Cataract extraction status, right eye; Z98.42 Cataract extraction status, left eye; Z79.51 Long term (current) use of inhaled steroids; Z79.890 Hormone replacement therapy; Z79.899 Other long term (current) drug therapy; Z88.5 Allergy status to narcotic agent; Z88.1 Allergy status to other antibiotic agents; Z80.7 Family history of other malignant neoplasms of lymphoid, hematopoietic and related tissues
CPT/HCPCS: 43774; 64486; J2250; J1644; J1100; J2710; J0690; J2405; J3010; J1885; J0330; J2704; J1170

== ENCOUNTER → 2020-06-03 | Outpatient (CLI) | payer MEDICAID ==
[2020-06-03 13:28] VITALS: BP 166/82; PULSE 74; TEMP 97.9; BMI 56.5
--- NOTE | 2020-06-03 14:19 | P.HPBAR ---
Bariatric H&P - History & Physicial H&P Date: 06/03/20 History & Physicial: Visit/CC: lap band removal Patient initial contact: Initial weight: 139.117 kg Initial weight in pounds: 306.70 Height: 5 ft 1 in Initial BMI: 57.9 Last weight: Current weight: 135.624 kg Current weight in pounds: 299.00 Current BMI: 56.5 [place] body weight (based on NIH guidelines): 47.627 kg Excess body weight loss: 3.8% The patient is a 64 year-old F who presents for Bariatric Assessment. Patient presents today for postoperative visit. She had her LAP-BAND removed 10 days ago. She feels well otherwise. She's had an 18 pound weight gain since her last visit. Past Medical History Past Medical History: Asthma, GERD/Reflux, Hypertension, Osteoarthritis (OA), Sleep Apnea/CPAP/BIPAP, Thyroid Disorder Additional Past Medical History / Comment(s): gout, past hx. arrhythmia, arthritis, has cpap History of Any Multi-Drug Resistant Organisms: None Reported Past Surgical History: Bariatric Surgery, Cholecystectomy, Orthopedic Surgery Additional Past Surgical History / Comment(s): lapband 2003, ganglion cyst left hand, carpal tunnel , tear duct surgery 2017 secondary to dry eyes, left knee arthroscopy. bhavna cataracts Past Anesthesia/Blood Transfusion Reactions: Previous Problems w/ Anesthesia Additional Past Anesthesia/Blood Transfusion Reaction / Comm: slow to wake up from anesthesia Past Psychological History: No Psychological Hx Reported Smoking Status: Never smoker Past Alcohol Use History: Rare Past Drug Use History: None Reported - Past Family History Mother Family Medical History: Cancer Additional Family Medical History / Comment(s): cancer in lymph nodes, Surgical - Exam Vital Signs Temp Pulse BP 97.9 F 74 166/82 06/03/20 13:22 06/03/20 13:22 06/03/20 13:22 - General well developed, well nourished, no distress - Eyes PERRL - ENT normal pinna - Neck no masses - Respiratory normal expansion - Cardiovascular Rhythm: regular - Abdomen Abdomen: soft, non tender Bariatric Assessment & Plan Plan: Status post lap band removal. Patient will follow-up in August. Bariatric Checklist Checklist: Plan: Checklist: EGD: 1. Hiatal hernia: 2. H. Pylori: HgbA1c: Vitamin D: Smoking: Never smoker Primary care physician referral: Dr.Loretta Castillo ([place]) Psychiatry clearance: Cardiology clearance: Sleep study: Diet journal: VTE risk score: VTE risk level: Rehab needs at discharge:
== END | disposition home or self-care (01) ==
LOC: BARWHC3 13:01
PROVIDERS: ATTEND Surgery
DX: Z46.51 Encounter for fitting and adjustment of gastric lap band (principal); Z98.84 Bariatric surgery status; Z90.49 Acquired absence of other specified parts of digestive tract
CPT/HCPCS: 99211

== ENCOUNTER → 2021-06-09 | Outpatient (CLI) | payer MEDICARE ==
[2021-06-09 13:34] VITALS: BP 156/85; PULSE 76; TEMP 97.8; BMI 55.0
[2021-06-09 15:24] LABS: Basophils % (A) 0 %; Eosinophils # (A) 0.1 k/uL (0-0.7); Eosinophils % (A) 2 %; HCT 42.3 % (34.0-46.0); HGB 13.2 gm/dL (11.4-16.0); Lymphocytes # (A) 1.8 k/uL (1.0-4.8); Lymphocytes % (A) 31 %; MCH 30.4 pg (25.0-35.0); MCHC 31.2 g/dL (31.0-37.0); MCV 97.5 fL (80.0-100.0); Mean Platelet Volume 8.8; Monocytes # (A) 0.4 k/uL (0-1.0); Monocytes % (A) 7 %; Neutrophils # (A) 3.3 k/uL (1.3-7.7); Neutrophils % (A) 56 %; Platelet Count 218 k/uL (150-450); RBC 4.34 m/uL (3.80-5.40); RDW 13.6 % (11.5-15.5); WBC 5.8 k/uL (3.8-10.6)
[2021-06-10 01:05] LABS: African American GFR (CKD) 89.7 (60.0-200.0); Albumin 4.3 g/dL (3.8-4.9); Albumin/Globulin Ratio 1.48 (1.60-3.17); Anion Gap 11.7 mmol/L (4.00-12.00); BUN/Creat Ratio 22.13 Ratio (12.00-20.00); Blood Urea Nitrogen 17.7 mg/dL (9.0-27.0); Carbon Dioxide 22.3 mmol/L (21.6-31.8); Globulin 2.9 g/dL (1.6-3.3); Non-African American GFR(CKD) 77.4 (60.0-200.0); Potassium 4.1 mmol/L (3.5-5.5); Total Bilirubin 0.4 mg/dL (0.30-1.20); Total Protein 7.2 g/dL (6.2-8.2)
--- NOTE | 2021-06-19 19:59 | P.HPBAR ---
Bariatric H&P - History & Physicial H&P Date: 06/09/21 History & Physicial: Visit/CC: presurgical visit Patient initial contact: Initial weight: 139.117 kg Initial weight in pounds: 306.70 Height: 5 ft 1 in Initial BMI: 57.9 Last weight: Current weight: 131.995 kg Current weight in pounds: 291.00 Current BMI: 55.0 [place] body weight (based on NIH guidelines): 47.627 kg Excess body weight loss: 7.7% The patient is a 65 year-old F who presents for Bariatric Assessment. Patient presents today for presurgical consultation. She is interested in the gastrectomy. Her BMI is 55. Patient appears history of LAP-BAND removal several years ago. Past Medical History Past Medical History: Asthma, GERD/Reflux, Hypertension, Osteoarthritis (OA), Sleep Apnea/CPAP/BIPAP, Thyroid Disorder Additional Past Medical History / Comment(s): gout, past hx. arrhythmia, arthritis, has cpap History of Any Multi-Drug Resistant Organisms: None Reported Past Surgical History: Bariatric Surgery, Cholecystectomy, Orthopedic Surgery Additional Past Surgical History / Comment(s): lapband 2003, ganglion cyst left hand, carpal tunnel , tear duct surgery 2017 secondary to dry eyes, left knee arthroscopy. bhavna cataracts Past Anesthesia/Blood Transfusion Reactions: Previous Problems w/ Anesthesia Additional Past Anesthesia/Blood Transfusion Reaction / Comm: slow to wake up from anesthesia Smoking Status: Never smoker - Past Family History Mother Family Medical History: Cancer Additional Family Medical History / Comment(s): cancer in lymph nodes, Surgical - Exam Vital Signs Temp Pulse BP 97.8 F 76 156/85 06/09/21 13:32 06/09/21 13:32 06/09/21 13:32 - General well developed, well nourished, no distress - Eyes PERRL - ENT normal pinna - Neck no masses - Respiratory normal expansion - Cardiovascular Rhythm: regular - Abdomen Abdomen: soft, non tender Results - Labs 06/09/21 14:37 06/09/21 14:37 Bariatric Assessment & Plan Plan: Morbid obesity. BMI 55. Patient will attempt to have insurance authorization for sleeve gastrectomy Bariatric Checklist Checklist: Plan: Checklist: EGD: 1. Hiatal hernia: 2. H. Pylori: HgbA1c: Vitamin D: Smoking: Never smoker Primary care physician referral: Dr.Loretta Castillo ([place]) Psychiatry clearance: Cardiology clearance: Sleep study: Diet journal: VTE risk score: VTE risk level: Rehab needs at discharge:
== END ==
LOC: BARWHC3 08:49
PROVIDERS: ATTEND Surgery
DX: E66.01 Morbid (severe) obesity due to excess calories (principal); J45.909 Unspecified asthma, uncomplicated; I10 Essential (primary) hypertension; M19.90 Unspecified osteoarthritis, unspecified site; Z98.84 Bariatric surgery status; Z68.43 Body mass index [BMI] 50.0-59.9, adult; Z88.5 Allergy status to narcotic agent; Z88.1 Allergy status to other antibiotic agents
CPT/HCPCS: 80053; 85025; 97804; 93005; 36415; G0463; 99211

== ENCOUNTER → 2021-10-06 | Outpatient (CLI) | payer MEDICARE ==
[2021-10-06 14:06] VITALS: BP 171/92; PULSE 118; RESP 16; TEMP 98.4; BMI 55.5
[2021-10-06 23:28] LABS: Basophils # (A) 0.02 X 10*3/uL (0.00-0.10); Basophils % (A) 0.3 %; Eosinophils # (A) 0.06 X 10*3/uL (0.04-0.35); Eosinophils % (A) 0.9 %; HCT 40.9 % (37.2-46.3); Immature Grans, Automated 0.3 %; Lymphocytes # (A) 2.24 X 10*3/uL (0.90-5.00); Lymphocytes % (A) 34.3 %; MCH 30.4 pg (27.0-32.0); MCHC 31.8 g/dL (32.0-37.0); MCV 95.6 fL (80.0-97.0); Mean Platelet Volume 11.6 fL (9.5-12.2); Monocytes # (A) 0.45 X 10*3/uL (0.20-1.00); Monocytes % (A) 6.9 %; NRBC Per 100 WBC 0 /100 WBCS (0.0-0.0); Neutrophils # (A) 3.75 X 10*3/uL (1.80-7.70); Neutrophils % (A) 57.3 %; Platelet Count 238 X 10*3/uL (140-440); RBC 4.28 X 10*6/uL (4.10-5.20); RDW 14.4 % (11.5-14.5); WBC 6.54 X 10*3/uL (4.50-10.00)
[2021-10-07 00:16] LABS: African American GFR (CKD) 72.2 (60.0-200.0); Albumin 4.3 g/dL (3.8-4.9); Albumin/Globulin Ratio 1.33 (1.60-3.17); BUN/Creat Ratio 15.34 Ratio (12.00-20.00); Blood Urea Nitrogen 14.6 mg/dL (9.0-27.0); Calcium 9.5 mg/dL (8.7-10.3); Carbon Dioxide 19.6 mmol/L (20.0-27.5); Globulin 3.2 g/dL (1.6-3.3); Non-African American GFR(CKD) 62.3 (60.0-200.0); Total Bilirubin 0.6 mg/dL (0.30-1.20); Total Protein 7.5 g/dL (6.2-8.2)
--- NOTE | 2021-10-13 15:15 | P.HPBAR ---
Bariatric H&P - History & Physicial H&P Date: 10/06/21 History & Physicial: Visit/CC: pre-surg Patient initial contact: Initial weight: 139.117 kg Initial weight in pounds: 306.70 Height: 5 ft 1 in Initial BMI: 57.9 Last weight: Current weight: 133.356 kg Current weight in pounds: 294.00 Current BMI: 55.5 [place] body weight (based on NIH guidelines): 47.627 kg Excess body weight loss: 6.2% The patient is a 66 year-old F who presents for Bariatric Assessment. She presents today for surgical consultation. She is requesting gastric sleeve surgery. She has currently received authorization. She is morbidly obese. Her BMI is 56 Past Medical History Past Medical History: Asthma, GERD/Reflux, Hypertension, Osteoarthritis (OA), Sleep Apnea/CPAP/BIPAP, Thyroid Disorder Additional Past Medical History / Comment(s): gout, past hx. arrhythmia, arthritis, has cpap History of Any Multi-Drug Resistant Organisms: None Reported Past Surgical History: Bariatric Surgery, Cholecystectomy, Orthopedic Surgery Additional Past Surgical History / Comment(s): lapband 2003, ganglion cyst left hand, carpal tunnel , tear duct surgery 2017 secondary to dry eyes, left knee arthroscopy. bhavna cataracts Past Anesthesia/Blood Transfusion Reactions: Previous Problems w/ Anesthesia Additional Past Anesthesia/Blood Transfusion Reaction / Comm: slow to wake up from anesthesia Past Psychological History: No Psychological Hx Reported Smoking Status: Never smoker Past Alcohol Use History: Rare Past Drug Use History: None Reported - Past Family History Mother Family Medical History: Cancer Additional Family Medical History / Comment(s): cancer in lymph nodes, Surgical - Exam Vital Signs Temp Pulse Resp BP 98.4 F 118 H 16 171/92 10/06/21 14:04 10/06/21 14:04 10/06/21 14:04 10/06/21 14:04 - General well developed, well nourished, no distress - Eyes PERRL - ENT normal pinna - Neck no masses - Respiratory normal expansion - Cardiovascular Rhythm: regular - Abdomen Abdomen: soft, non tender Results - Labs 10/06/21 15:48 10/06/21 15:48 Bariatric Assessment & Plan Plan: Morbid obesity. Patient has an excellent understanding of sleeve gastrectomy. When over the risks and benefits of the procedure. She's aware the risk of gastric staple line disruption, scarring and bleeding. Patient will be scheduled for sleeve gastrectomy. Bariatric Checklist Checklist: Plan: Checklist: EGD: 1. Hiatal hernia: 2. H. Pylori: HgbA1c: Vitamin D: Smoking: Never smoker Primary care physician referral: Dr.Loretta Castillo ([place]) Psychiatry clearance: Cardiology clearance: Sleep study: Diet journal: VTE risk score: VTE risk level: Rehab needs at discharge:
== END ==
LOC: BARWHC3 13:40
PROVIDERS: ATTEND Surgery
DX: E66.01 Morbid (severe) obesity due to excess calories (principal); J45.909 Unspecified asthma, uncomplicated; I10 Essential (primary) hypertension; M19.90 Unspecified osteoarthritis, unspecified site; Z98.84 Bariatric surgery status; Z68.43 Body mass index [BMI] 50.0-59.9, adult; Z88.5 Allergy status to narcotic agent; Z88.1 Allergy status to other antibiotic agents
CPT/HCPCS: 80053; 85025; G0463; 99211

== ENCOUNTER 2021-10-27 07:40 | Inpatient (IN) | payer MEDICARE ==
[~2021-10-27 07:40] MED LIST changes: +DEXAMETHASONE SOD PHOSPHATE 4 MG/ML 1 ML VIAL IV ONE; +ENOXAPARIN 40 MG/0.4 ML SYRINGE SQ PRN; +LIDOCAINE 1% (10MG/ML) FOR IV START INTRADERMA PRN; +MIDAZOLAM 2 MG/2 ML VIAL IV PRN; +ONDANSETRON 4 MG/2 ML VIAL IVP ONE; -ceFAZolin 3 GM in SODIUM CHLORIDE 0.9% 100 ML IVPB ONE; +ceFAZolin 3 GM in SODIUM CHLORIDE 0.9% 100 ML IVPB PRN
[2021-10-27] MEDS: LACTATED RINGERS 1,000 ML IV SCH (10:06)
--- NOTE | 2021-10-27 11:05 | P.GSHP ---
History of Present Illness H&P Date: 10/27/21 Chief Complaint: Morbid obesity This is a 66-year-old female with previous history of gastric band surgery and then subsequent removal of LAP-BAND device. Patient's body mass index is 54. Presents today for laparoscopic sleeve gastrectomy. Patient is aware the risks of surgery including issues gastric staple line bleeding, disruption and scarring. She is also aware the risk of adhesions from previous surgery. Past Medical History Past Medical History: Asthma, GERD/Reflux, Hypertension, Osteoarthritis (OA), Pneumonia, Sleep Apnea/CPAP/BIPAP, Thyroid Disorder Additional Past Medical History / Comment(s): gout, past hx arrhythmia, arthritis knees, has cpap. Edema BLE History of Any Multi-Drug Resistant Organisms: None Reported Past Surgical History: Bariatric Surgery, Cholecystectomy, Orthopedic Surgery Additional Past Surgical History / Comment(s): lap band 2002, removal 2019; ganglion cyst left hand, CTR Rt hand , tear duct surgery 2017 secondary to dry eyes, bilat knee arthroscopy. bhavna cataracts. Past Anesthesia/Blood Transfusion Reactions: Previous Problems w/ Anesthesia Additional Past Anesthesia/Blood Transfusion Reaction / Comment(s): slow to wake up from anesthesia Smoking Status: Never smoker - Past Family History Mother Family Medical History: Cancer Additional Family Medical History / Comment(s): cancer in lymph nodes Medications and Allergies Home Medications Medication Instructions Recorded Confirmed Type allopurinoL [Zyloprim] 300 mg PO HS 11/18/15 10/27/21 History Losartan Potassium 100 mg PO HS 10/13/19 10/27/21 History Albuterol Inhaler (Mhu) [Ventolin 1 - 2 puff INHALATION RT-Q6H PRN 10/17/19 10/27/21 History Hfa Inhaler] Levothyroxine Sodium [Synthroid] 150 mcg PO QAM 10/17/19 10/27/21 History Acetaminophen [Tylenol Arthritis] 1,300 mg PO BID 10/23/21 10/27/21 History Ascorbic Acid [Vitamin C chew] 1,000 mg PO DAILY 10/23/21 10/27/21 History Calcium Carbonate [Tums] 500 - 1,000 mg PO QID PRN 10/23/21 10/27/21 History Cholecalciferol [Vitamin D3 (125 250 mcg PO HS 10/23/21 10/27/21 History Mcg = 5000 Iu)] Cyanocobalamin (Vitamin B-12) 1,000 mcg PO DAILY 10/23/21 10/27/21 History [Vitamin B-12] Fluticasone/Umeclidin/Vilanter 1 puff INHALATION DAILY 10/23/21 10/27/21 History [Trelegy Ellipta 200-62.5-25] Furosemide [Lasix] 40 mg PO DAILY 10/23/21 10/27/21 History Mag/Aluminum/Sod Bicarb/Alginc 1 tab PO DIRECTED PRN 10/23/21 10/27/21 History [Gaviscon 80-14.2 mg Tab Chew] Magnesium 250 mg PO DAILY 10/23/21 10/27/21 History Multivitamins, Thera [Multivitamin 1 tab PO DAILY 10/23/21 10/27/21 History (formulary)] Potassium Gluconate [Potassium 99 mg PO DAILY 10/23/21 10/27/21 History Gluconate ER] Spironolactone [Aldactone] 25 mg PO BID 10/23/21 10/27/21 History Topiramate [Topamax] 50 mg PO BID 10/23/21 10/27/21 History Turmeric Root Extract [Turmeric] 1,500 mg PO DAILY 10/23/21 10/27/21 History Allergies Allergy/AdvReac Type Severity Reaction Status Date / Time codeine Allergy Nausea & Verified 10/27/21 09:53 Vomiting clindamycin AdvReac Diarrhea Verified 10/27/21 09:53 Surgical - Exam Vital Signs Temp Pulse Resp BP Pulse Ox 98.3 F 80 18 126/69 97 10/27/21 10:12 10/27/21 10:12 10/27/21 10:12 10/27/21 10:12 10/27/21 10:12 - General well developed, well nourished, no distress - Eyes PERRL - ENT normal pinna - Neck no masses - Respiratory normal expansion - Cardiovascular Rhythm: regular - Abdomen Abdomen: soft, non tender Assessment and Plan Assessment: Morbid obesity, BMI 44. Patient undergo laparoscopic sleeve gastrectomy.
[2021-10-27] MEDS ORDERED: LIDOCAINE 1% INJ 10MG/ML (20 ML MDV) ONE (11:32)
[2021-10-27] MEDS ORDERED: fentaNYL (PF) 50 MCG/ML 2 ML AMP ONE (11:32)
[2021-10-27] MEDS ORDERED: MIDAZOLAM 2 MG/2 ML VIAL ONE (11:32)
[2021-10-27] MEDS ORDERED: NEOSTIGMINE 1 MG/ML 10 ML VIAL ONE (11:32)
[2021-10-27] MEDS ORDERED: SUCCINYLCHOLINE CHLORIDE VIAL 200 MG/10 ML VIAL IV ONE (11:32)
[2021-10-27] MEDS ORDERED: GLYCOPYRROLATE 0.2 MG/ML 2 ML VIAL ONE (11:32)
[2021-10-27] MEDS ORDERED: ROCURONIUM 10 MG/ML (5 ML VIAL) IV ONE (11:32)
[2021-10-27] MEDS ORDERED: PROPOFOL 10 MG/ML 20 ML VIAL IV ONE (11:32)
[2021-10-27] MEDS ORDERED: BUPIVACAIN-EPI 0.25%-1:200,000 30 ML VIAL SQ ONE (12:11)
[2021-10-27] MEDS ORDERED: NALOXONE 0.4 MG/ML 1 ML VIAL IV PRN (13:12)
[2021-10-27] MEDS ORDERED: diphenhydrAMINE 50 MG/ML 1 ML VIAL IVP PRN (13:12)
[2021-10-27] MEDS ORDERED: ONDANSETRON 4 MG/2 ML VIAL IVP PRN (13:12)
[2021-10-27] MEDS ORDERED: HYDROmorphone 1 MG/ML 1 ML SYRINGE IVP PRN (13:12)
[2021-10-27] MEDS: HYDROmorphone 0.5 MG/0.5 ML SYRINGE IVP PRN ×2 (13:37→13:52)
[2021-10-27] MEDS ORDERED: LACTATED RINGERS 1,000 ML IV ONE (14:08)
--- NOTE | 2021-10-27 15:48 | P.OP ---
Date of Procedure: 10/27/21 Preoperative Diagnosis: Morbid obesity, BMI 54 Postoperative Diagnosis: Morbid obesity, BMI 54 Procedure(s) Performed: Lysis of extensive adhesions Laparoscopic sleeve gastrectomy Anesthesia: ROBEL Surgeon: Filiberto Riley Estimated Blood Loss (ml): 20 Pathology: other (Stomach) Condition: stable Disposition: PACU Description of Procedure: The patient was placed on the operating room table in the supine position. She received general anesthesia and then was placed in dorsal lithotomy position. Her abdomen was prepped and draped in sterile fashion. The skin incision sites were anesthetized 1% local Xylocaine. And then the skin was incised with an 11 blade in the left lateral position. Using a blade less trocar under direct visualization the peritoneal cavity was entered. The abdomen was insufflated and then a 5 mm laparoscope was placed into the peritoneal cavity. A 5 mm trocar was placed in the right epigastric, and right lateral position. A 15 mm trocar was placed in the supra-umbilical position and another 5 mm trocar was placed in the left lateral position. The left lateral lobe of the liver was retracted. There were significant adhesions in the stomach and liver due to her previous band surgery. The lesions were lysed with sharp dissection. Approximately 20 minutes of operative time used to lyse adhesions. The stomach was visualized. The greater curvature of the stomach was then dissected using the Harmonic scissors. The dissection occurred approximately 5 cm from the pylorus to the level of the left mckenzie. There was no hiatal hernia seen. At this point a 40-Greek bougie dilator was placed the oropharynx and passed into the esophagus and into the stomach by the CELLARS SUPERVISOR. The sleeve gastrectomy was performed by using the powered echelon stapler with a seam guard buttress material. Sequential firings of the stapler were performed. The gastric remnant was then brought out through the 15 mm trocar site. The dilator was withdrawn. And a orogastric tube was replaced into the stomach. The stomach was insufflated with 200 mL of methylene blue normal saline. There was no evidence of extravasation. The abdomen was irrigated there is no bleeding seen. The Osmar-Sarina device was used to close the 15 mm trocar with 0 V icryl. Skin was closed with interrupted 3-0 Monocryl sutures once the trochars withdrawn. Dermabond dressing was applied. Patient was sent to recovery in stable condition.
[2021-10-27] MEDS: KETOROLAC 15 MG/ML 1 ML VIAL IVP SCH (16:42)
[2021-10-27] MEDS: ALBUTEROL NEBULIZED 2.5 MG/3 ML INHALATION SCH ×2 (16:52→20:45)
[2021-10-27] MEDS: SIMETHICONE 40 MG/0.6 ML DROPS 2,000 MG/30 ML BOTTLE PO PRN (17:37)
[2021-10-27] MEDS: HYOSCYAMINE ORAL DROPS 1.875 MG/15 ML BOTTLE PO PRN (21:47)
[2021-10-27] MEDS: 0.9% NACL WITH KCL 20 MEQ/L 1,000 ML IV SCH ×2 (21:47→23:08)
[2021-10-27] MEDS: HYDROcodone/APAP 15 ML SOLUTION PO PRN (21:48)
[2021-10-28] MEDS: ENOXAPARIN 40 MG/0.4 ML SYRINGE SQ SCH ×2 (01:23→12:22)
[2021-10-28] MEDS: KETOROLAC 15 MG/ML 1 ML VIAL IVP SCH ×4 (01:31→17:08)
[2021-10-28] MEDS: SIMETHICONE 40 MG/0.6 ML DROPS 2,000 MG/30 ML BOTTLE PO PRN ×3 (01:33→17:08)
[2021-10-28] MEDS ORDERED: ALBUTEROL NEBULIZED 2.5 MG/3 ML INHALATION PRN (03:47)
[2021-10-28] MEDS: 0.9% NACL WITH KCL 20 MEQ/L 1,000 ML IV SCH (04:48)
[2021-10-28] MEDS: LEVOTHYROXINE 75 MCG TAB PO SCH (05:51)
[2021-10-28 07:23] VITALS: RESP 16
[2021-10-28] MEDS: LACTATED RINGERS 1,000 ML IV SCH (07:26)
[2021-10-28] MEDS: PANTOPRAZOLE 40 MG/10 ML VIAL IV SCH (07:32)
[2021-10-28] MEDS: IPRATROPIUM-ALBUTEROL 3 ML NEB INHALATION SCH ×4 (07:32→19:42)
[2021-10-28] MEDS: SYMBICORT 80-4.5 MCG INHALER INHALATION SCH ×2 (07:36→19:43)
[2021-10-28] MEDS ORDERED: IPRATROPIUM 0.5 MG/2.5 ML NEBU INHALATION SCH (08:00)
[2021-10-28] MEDS ORDERED: 1: THIAMINE 100 MG, FOLIC ACID 1 MG in 0.9% NACL WITH KCL 20 MEQ/L 1,000 ML 2: 0.9% NAC IVPB SCH (08:00)
[2021-10-28 09:29] LABS: Basophils # (A) 0.01 X 10*3/uL (0.00-0.10); Basophils % (A) 0.1 %; Eosinophils # (A) 0 X 10*3/uL (0.04-0.35); Eosinophils % (A) 0 %; HCT 37.2 % (37.2-46.3); HGB 11.9 g/dL (12.0-15.0); Immature Grans, Automated 0.3 %; Lymphocytes # (A) 0.95 X 10*3/uL (0.90-5.00); Lymphocytes % (A) 10.3 %; MCH 30.2 pg (27.0-32.0); MCV 94.4 fL (80.0-97.0); Mean Platelet Volume 12.4 fL (9.5-12.2); Monocytes # (A) 0.98 X 10*3/uL (0.20-1.00); Monocytes % (A) 10.7 %; NRBC Per 100 WBC 0 /100 WBCS (0.0-0.0); Neutrophils # (A) 7.22 X 10*3/uL (1.80-7.70); Neutrophils % (A) 78.6 %; Platelet Count 238 X 10*3/uL (140-440); RBC 3.94 X 10*6/uL (4.10-5.20); RDW 14.6 % (11.5-14.5); WBC 9.19 X 10*3/uL (4.50-10.00)
--- NOTE | 2021-10-28 09:33 | FL ---
EXAMINATION TYPE: FL UGI DATE OF EXAM: 10/28/2021 LIMITED UGI: CLINICAL HISTORY: Morbid Obesity, history of lap band surgery in the past with removal 2 years ago. Gastric sleeve surgery performed yesterday. TECHNIQUE: Limited esophagram is performed utilizing 50 oz of Isovue 370. A total of 85 seconds of f luoroscopic time was utilized during procedure and 47 images obtained. COMPARISON: None. FINDINGS: The patient swallowed contrast without difficulty or delay. Occasional abnormal secondary and tertiary contraction along course of the esophagus. There is satisfactory flow of contrast along the diaphragmatic hiatus into proximal stomach and mild to moderate delay in flow into gastric sleev e through proximal anastomosis. There is some reflux from proximal stomach and sleeve back into the d istal esophagus. There is mild to moderate delay in flow from distal sleeve and anastomosis into pylo poppy and duodenal sweep. Patient however remains asymptomatic. There is no evidence of contrast extrav asation to suggest leak. IMPRESSION: No evidence of leak status post recent gastric sleeve surgery. Mild to moderate delay in passage through the gastric sleeve with gastroesophageal reflux but the patient is noted to remain as ymptomatic without increased nausea or vomiting.
[2021-10-28 10:38] LABS: Magnesium 2.3 mg/dL (1.5-2.4)
[2021-10-28 10:58] LABS: African American GFR (CKD) 77.2 (60.0-200.0); Anion Gap 15.8 mmol/L (10.00-18.00); Blood Urea Nitrogen 16.9 mg/dL (9.0-27.0); Calcium 8.9 mg/dL (8.7-10.3); Carbon Dioxide 16.2 mmol/L (20.0-27.5); Non-African American GFR(CKD) 66.6 (60.0-200.0); Phosphorus 3.3 mg/dL (2.4-5.1); Potassium 4.2 mmol/L (3.5-5.5)
--- NOTE | 2021-10-28 12:20 | P.CONS ---
History of Present Illness - Reason for Consult Management of hypertension - History of Present Illness 66-year-old with with the history of gastric band surgery and it came in for left pubic C sleeve surgery. Patient is doing well and is fairly well controlled but is not passing gas yet. Patient denied any fever chills nausea vomiting dysuria REVIEW OF SYSTEMS: CONSTITUTIONAL: No fever, no malaise, no fatigue. HEENT: No recent visual problems or hearing problems. Denied any sore throat. CARDIOVASCULAR: No chest pain, orthopnea, PND, no palpitations, no syncope. PULMONARY: No shortness of breath, no cough, no hemoptysis. GASTROINTESTINAL: No diarrhea, no nausea, no vomiting, no abdominal pain. NEUROLOGICAL: No headaches, no weakness, no numbness. HEMATOLOGICAL: Denies any bleeding or petechiae. GENITOURINARY: Denies any burning micturition, frequency, or urgency. MUSCULOSKELETAL/RHEUMATOLOGICAL: Denies any joint pain, swelling, or any muscle pain. ENDOCRINE: Denies any polyuria or polydipsia. The rest of the 14-point review of systems is negative. PHYSICAL EXAMINATION: GENERAL: The patient is alert and oriented x3, not in any acute distress. Obese HEENT: Pupils are round and equally reacting to light. EOMI. No scleral icterus. No conjunctival pallor. Normocephalic, atraumatic. No pharyngeal erythema. No thyromegaly. CARDIOVASCULAR: S1 and S2 present. No murmurs, rubs, or gallops. PULMONARY: Chest is clear to auscultation, no wheezing or crackles. ABDOMEN: Soft, nontender, nondistended, normoactive bowel sounds. No palpable organomegaly. MUSCULOSKELETAL: No joint swelling or deformity. EXTREMITIES: No cyanosis, clubbing, or pedal edema. NEUROLOGICAL: Gross neurological examination did not reveal any focal deficits. SKIN: No rashes. Assessment and plan -Asthma without any acute exacerbation at this time. Patient appears to have mild intermittent asthma. -Hypertension for which the patient is on losartan will be continued on diuretics for swelling which will be resumed once she is out of fluids -Sleep apnea continue CPAP machine -Severe osteoarthritis -Hyperthyroidism patient was resumed on levothyroxin - DVT prophylaxis: She is on every 12 Lovenox which is appropriate dosing Past Medical History Past Medical History: Asthma, GERD/Reflux, Hypertension, Osteoarthritis (OA), Pneumonia, Sleep Apnea/CPAP/BIPAP, Thyroid Disorder Additional Past Medical History / Comment(s): gout, past hx arrhythmia, arthritis knees, has cpap. Edema BLE History of Any Multi-Drug Resistant Organisms: None Reported Past Surgical History: Bariatric Surgery, Cholecystectomy, Orthopedic Surgery Additional Past Surgical History / Comment(s): lap band 2002, removal 2019; ganglion cyst left hand, CTR Rt hand , tear duct surgery 2017 secondary to dry eyes, bilat knee arthroscopy. bhavna cataracts. Past Anesthesia/Blood Transfusion Reactions: Previous Problems w/ Anesthesia Additional Past Anesthesia/Blood Transfusion Reaction / Comm: slow to wake up from anesthesia Past Psychological History: No Psychological Hx Reported Smoking Status: Never smoker Past Alcohol Use History: Rare Past Drug Use History: None Reported - Past Family History Mother Family Medical History: Cancer Additional Family Medical History / Comment(s): cancer in lymph nodes Medications and Allergies Home Medications Medication Instructions Recorded Confirmed Type allopurinoL [Zyloprim] 300 mg PO HS 11/18/15 10/27/21 History Losartan Potassium 100 mg PO HS 10/13/19 10/27/21 History Albuterol Inhaler (Mhu) [Ventolin 1 - 2 puff INHALATION RT-Q6H PRN 10/17/19 10/27/21 History Hfa Inhaler] Levothyroxine Sodium [Synthroid] 150 mcg PO QAM 10/17/19 10/27/21 History Acetaminophen [Tylenol Arthritis] 1,300 mg PO BID 10/23/21 10/27/21 History Ascorbic Acid [Vitamin C chew] 1,000 mg PO DAILY 10/23/21 10/27/21 History Calcium Carbonate [Tums] 500 - 1,000 mg PO QID PRN 10/23/21 10/27/21 History Cholecalciferol [Vitamin D3 (125 250 mcg PO HS 10/23/21 10/27/21 History Mcg = 5000 Iu)] Cyanocobalamin (Vitamin B-12) 1,000 mcg PO DAILY 10/23/21 10/27/21 History [Vitamin B-12] Fluticasone/Umeclidin/Vilanter 1 puff INHALATION DAILY 10/23/21 10/27/21 History [Trelegy Ellipta 200-62.5-25] Furosemide [Lasix] 40 mg PO DAILY 10/23/21 10/27/21 History Mag/Aluminum/Sod Bicarb/Alginc 1 tab PO DIRECTED PRN 10/23/21 10/27/21 History [Gaviscon 80-14.2 mg Tab Chew] Magnesium 250 mg PO DAILY 10/23/21 10/27/21 History Multivitamins, Thera [Multivitamin 1 tab PO DAILY 10/23/21 10/27/21 History (formulary)] Potassium Gluconate [Potassium 99 mg PO DAILY 10/23/21 10/27/21 History Gluconate ER] Spironolactone [Aldactone] 25 mg PO BID 10/23/21 10/27/21 History Topiramate [Topamax] 50 mg PO BID 10/23/21 10/27/21 History Turmeric Root Extract [Turmeric] 1,500 mg PO DAILY 10/23/21 10/27/21 History Allergies Allergy/AdvReac Type Severity Reaction Status Date / Time codeine Allergy Nausea & Verified 10/27/21 09:53 Vomiting clindamycin AdvReac Diarrhea Verified 10/27/21 09:53 Physical Exam Vitals: Vital Signs Temp Pulse Pulse Pulse Resp BP Pulse Ox 10/28/21 11:25 70 10/28/21 11:15 70 10/28/21 07:46 72 10/28/21 07:37 76 96 10/28/21 07:22 98.3 F 83 16 120/66 95 10/28/21 02:00 98.9 F 98 18 136/60 94 L 10/27/21 21:02 60 10/27/21 20:46 62 10/27/21 20:00 97.8 F 62 18 175/85 98 10/27/21 19:27 62 18 10/27/21 17:09 64 10/27/21 16:53 60 97 10/27/21 16:14 97.9 F 58 L 18 155/84 96 10/27/21 14:16 54 L 16 145/66 96 10/27/21 14:01 55 L 16 132/63 96 10/27/21 13:47 56 L 16 128/58 96 10/27/21 13:31 60 16 140/62 96 10/27/21 13:20 96.8 F L 75 16 110/69 95 Intake and Output 10/27/21 10/28/21 10/28/21 22:59 06:59 14:59 Other: # Voids 0 2 Results CBC & Chem 7: 10/28/21 03:09 10/28/21 03:09 Labs: Abnormal Lab Results - Last 24 Hours (Table) 10/28/21 10/28/21 Range/Units 03:09 03:09 RBC 3.94 L (4.10-5.20) X 10*6/uL Hgb 11.9 L (12.0-15.0) g/dL RDW 14.6 H (11.5-14.5) % MPV 12.4 H (9.5-12.2) fL Eosinophils # 0 L (0.04-0.35) X 10*3/uL Carbon Dioxide 16.2 L (20.0-27.5) mmol/L
--- NOTE | 2021-10-28 12:53 | P.PN ---
Subjective Progress Note Date: 10/28/21 CHIEF COMPLAINT: Morbid obesity HISTORY OF PRESENT ILLNESS: Patient is postop day #1 status post laparoscopic sleeve gastrectomy and lysis of extensive adhesions. Patient had upper GI completed showing no evidence of leak. Mild to moderate delay in passage through the gastric sleeve with gastroesophageal reflux but the patient is noted to remain asymptomatic without increased nausea or vomiting. Afebrile. WBC is 9.19 hemoglobin 11.9 platelets 238 sodium 137 potassium 4.2 creatinine 0.9 magnesium 2.3 Patient seen and examined with Dr. rankin PHYSICAL EXAM: VITAL SIGNS: Reviewed. GENERAL: Well-developed in no acute distress. HEENT: No sclera icterus. Extraocular movements grossly intact. Moist buccal mucosa. Head is atraumatic, normocephalic. ABDOMEN: Soft. Nondistended. Incision sites clean dry and intact. Mild dried blood noted in the lower abdominal incision. NEUROLOGIC: Alert and oriented. Cranial nerves II through XII grossly intact. ASSESSMENT: 1. Morbid obesity status post laparoscopic sleeve gastrectomy and lysis of adhesions PLAN: -Start bariatric clear liquid diet -Continue IV fluids -Continue pain medication as needed -Encourage patient to ambulate -GI prophylaxis Protonix and DVT prophylaxis Lovenox -Anticipate discharge tomorrow Physician Service Captain note has been reviewed by physician. Signing provider agrees with the documented findings, assessment, and plan of care. Objective - Vital Signs Vital signs: Vital Signs Temp 98.3 F 10/28/21 07:22 Pulse 70 10/28/21 11:25 Resp 16 10/28/21 07:22 BP 120/66 10/28/21 07:22 Pulse Ox 96 10/28/21 07:37 Intake & Output 10/27/21 10/28/21 10/28/21 18:59 06:59 18:59 Intake Total 850 Output Total 20 Balance 830 Weight 130.5 kg Intake: IV 850 Output: Estimated Blood Loss 20 Other: # Voids 0 2 - Labs CBC & Chem 7: 10/28/21 03:09 10/28/21 03:09 Labs: Abnormal Lab Results - Last 24 Hours (Table) 10/28/21 10/28/21 Range/Units 03:09 03:09 RBC 3.94 L (4.10-5.20) X 10*6/uL Hgb 11.9 L (12.0-15.0) g/dL RDW 14.6 H (11.5-14.5) % MPV 12.4 H (9.5-12.2) fL Eosinophils # 0 L (0.04-0.35) X 10*3/uL Carbon Dioxide 16.2 L (20.0-27.5) mmol/L
[2021-10-28] MEDS: 1: THIAMINE 100 MG, FOLIC ACID 1 MG in 0.9% NACL WITH KCL 20 MEQ/L 1,000 ML 2: 0.9% NAC IVPB SCH (14:19)
[2021-10-28 15:02] VITALS: BMI 54.3
[2021-10-28] MEDS: HYOSCYAMINE ORAL DROPS 1.875 MG/15 ML BOTTLE PO PRN (17:09)
[2021-10-28] MEDS: TOPIRAMATE 25 MG TAB PO SCH (20:49)
[2021-10-28] MEDS ORDERED: LOSARTAN 50 MG TAB PO SCH (21:00)
[2021-10-28] MEDS ORDERED: allopurinoL 300 MG TAB PO SCH (21:00)
[2021-10-28] MEDS: HYDROcodone/APAP 15 ML SOLUTION PO PRN (21:04)
[2021-10-29] MEDS: ENOXAPARIN 40 MG/0.4 ML SYRINGE SQ SCH ×2 (00:05→11:15)
[2021-10-29] MEDS: KETOROLAC 15 MG/ML 1 ML VIAL IVP SCH ×3 (00:05→12:47)
[2021-10-29] MEDS: 1: THIAMINE 100 MG, FOLIC ACID 1 MG in 0.9% NACL WITH KCL 20 MEQ/L 1,000 ML 2: 0.9% NAC IVPB SCH ×2 (00:05→10:03)
[2021-10-29] MEDS: HYOSCYAMINE ORAL DROPS 1.875 MG/15 ML BOTTLE PO PRN ×2 (00:08→05:37)
[2021-10-29] MEDS: SIMETHICONE 40 MG/0.6 ML DROPS 2,000 MG/30 ML BOTTLE PO PRN ×2 (00:08→05:37)
[2021-10-29] MEDS: LEVOTHYROXINE 75 MCG TAB PO SCH (05:37)
[2021-10-29 07:06] VITALS: BP 123/68; TEMP 98
[2021-10-29] MEDS: SYMBICORT 80-4.5 MCG INHALER INHALATION SCH (08:44)
[2021-10-29] MEDS: IPRATROPIUM-ALBUTEROL 3 ML NEB INHALATION SCH ×2 (08:44→11:38)
[2021-10-29] MEDS ORDERED: MAGNESIUM OXIDE 400 MG TAB PO SCH (09:00)
[2021-10-29] MEDS: TOPIRAMATE 25 MG TAB PO SCH (09:29)
[2021-10-29] MEDS: PANTOPRAZOLE 40 MG/10 ML VIAL IV SCH (09:32)
--- NOTE | 2021-10-29 11:37 | P.DS ---
Providers Date of admission: 10/27/21 09:26 Expected date of discharge: 10/29/21 Attending physician: Filiberto Riley Consults: 10/27/21 13:12 Consult Physician Routine Consulting Provider: Jimenez Arriola Consult Reason/Comments: med manage Do you want consulting provider notified?: Yes Primary care physician: Mimi Mendoza MD Hospital Course: Discharge diagnosis 1. Morbid obesity status post laparoscopic sleeve gastrectomy and lysis of adhesions Hospital course This is a 66-year-old female with history of morbid obesity. She is status post laparoscopic sleeve gastrectomy and lysis of adhesions. Her pain is controlled. She denies any difficulty swallowing. She is tolerating her liquids. Upper GI showed no evidence of leak. Mild to moderate delay in passage through the gastric sleeve with gastroesophageal reflux but the patient is noted to remain asymptomatic without increased nausea or vomiting. Patient is having bowel movements. She is up and ambulating. She is afebrile. She is stable for discharge. Please refer to chart for any further details. Physician Clinical Project Manager note has been reviewed by physician. Signing provider agrees with the documented findings, assessment, and plan of care. Patient Condition at Discharge: Stable Plan - Discharge Summary Discharge Rx Participant: Yes New Discharge Prescriptions: New bisacodyL [Dulcolax] 5 mg PO DAILY PRN #10 tab PRN Reason: Constipation Simethicone 40 mg/0.6 ml Drops [Mylicon Drops] 40 mg PO PCHS PRN #30 ml PRN Reason: Gas HYDROcodone/APAP 5-325MG [[place] 5-325] 1 tab PO Q6HR PRN 2 Days #5 tab PRN Reason: Pain Omeprazole [PriLOSEC] 40 mg PO DAILY #30 cap Ondansetron Odt [Zofran Odt] 4 mg PO Q8HR PRN #9 tab PRN Reason: Nausea No Action allopurinoL [Zyloprim] 300 mg PO HS Losartan Potassium 100 mg PO HS Albuterol Inhaler (Mhu) [Ventolin Hfa Inhaler] 1 - 2 puff INHALATION RT-Q6H PRN PRN Reason: sob Levothyroxine Sodium [Synthroid] 150 mcg PO QAM Magnesium 250 mg PO DAILY Multivitamins, Thera [Multivitamin (formulary)] 1 tab PO DAILY Cyanocobalamin (Vitamin B-12) [Vitamin B-12] 1,000 mcg PO DAILY Ascorbic Acid [Vitamin C chew] 1,000 mg PO DAILY Furosemide [Lasix] 40 mg PO DAILY Topiramate [Topamax] 50 mg PO BID Acetaminophen [Tylenol Arthritis] 1,300 mg PO BID Mag/Aluminum/Sod Bicarb/Alginc [Gaviscon 80-14.2 mg Tab Chew] 1 tab PO DIRECTED PRN PRN Reason: GERD Cholecalciferol [Vitamin D3 (125 Mcg = 5000 Iu)] 250 mcg PO HS Turmeric Root Extract [Turmeric] 1,500 mg PO DAILY Spironolactone [Aldactone] 25 mg PO BID Fluticasone/Umeclidin/Vilanter [Trelegy Ellipta 200-62.5-25] 1 puff INHALATION DAILY Potassium Gluconate [Potassium Gluconate ER] 99 mg PO DAILY Calcium Carbonate [Tums] 500 - 1,000 mg PO QID PRN PRN Reason: GERD Discharge Medication List allopurinoL [Zyloprim] 300 mg PO HS 11/18/15 [History] Losartan Potassium 100 mg PO HS 10/13/19 [History] Albuterol Inhaler (Mhu) [Ventolin Hfa Inhaler] 1 - 2 puff INHALATION RT-Q6H PRN 10/17/19 [History] Levothyroxine Sodium [Synthroid] 150 mcg PO QAM 10/17/19 [History] Acetaminophen [Tylenol Arthritis] 1,300 mg PO BID 10/23/21 [History] Ascorbic Acid [Vitamin C chew] 1,000 mg PO DAILY 10/23/21 [History] Calcium Carbonate [Tums] 500 - 1,000 mg PO QID PRN 10/23/21 [History] Cholecalciferol [Vitamin D3 (125 Mcg = 5000 Iu)] 250 mcg PO HS 10/23/21 [History] Cyanocobalamin (Vitamin B-12) [Vitamin B-12] 1,000 mcg PO DAILY 10/23/21 [History] Fluticasone/Umeclidin/Vilanter [Trelegy Ellipta 200-62.5-25] 1 puff INHALATION DAILY 10/23/21 [History] Furosemide [Lasix] 40 mg PO DAILY 10/23/21 [History] Mag/Aluminum/Sod Bicarb/Alginc [Gaviscon 80-14.2 mg Tab Chew] 1 tab PO DIRECTED PRN 10/23/21 [History] Magnesium 250 mg PO DAILY 10/23/21 [History] Multivitamins, Thera [Multivitamin (formulary)] 1 tab PO DAILY 10/23/21 [History] Potassium Gluconate [Potassium Gluconate ER] 99 mg PO DAILY 10/23/21 [History] Spironolactone [Aldactone] 25 mg PO BID 10/23/21 [History] Topiramate [Topamax] 50 mg PO BID 10/23/21 [History] Turmeric Root Extract [Turmeric] 1,500 mg PO DAILY 10/23/21 [History] HYDROcodone/APAP 5-325MG [[place] 5-325] 1 tab PO Q6HR PRN 2 Days #5 tab 10/29/21 [Rx] Omeprazole [PriLOSEC] 40 mg PO DAILY #30 cap 10/29/21 [Rx] Ondansetron Odt [Zofran Odt] 4 mg PO Q8HR PRN #9 tab 10/29/21 [Rx] Simethicone 40 mg/0.6 ml Drops [Mylicon Drops] 40 mg PO PCHS PRN #30 ml 10/29/21 [Rx] bisacodyL [Dulcolax] 5 mg PO DAILY PRN #10 tab 10/29/21 [Rx] Follow up Appointment(s)/Referral(s): Mimi Mendoza MD [Primary Care Provider] - 11/04/21 3:30 pm (PLEASE TAKE DISCHARGE PAPERS TO APPOINTMENT ) [facility] [place] [place] [facility] - 1 Week Activity/Diet/Wound Care/Special Instructions: Medicine service to complete discharge med rec No driving while taking [place] No lifting over 10 pounds You may shower. No soaking or tub baths for 2 weeks Very light activity until you are reevaluated at your follow up appointment with your surgeon No straws or carbonated beverages Discharge Disposition: HOME SELF-CARE
[2021-10-29 11:54] VITALS: PULSE 79
--- NOTE | 2021-10-29 14:48 | P.PN ---
Subjective Progress Note Date: 10/29/21 - Reason for Consult Management of hypertension - History of Present Illness 66-year-old with with the history of gastric band surgery and it came in for left pubic C sleeve surgery. Patient is doing well and is fairly well controlled but is not passing gas yet. Patient denied any fever chills nausea vomiting dysuria 10/29/2021 Patient is seen and evaluated in follow-up status post gastric surgical intervention with no acute overnight issues noted. Patient reports to feeling quite well today and passing gas and did have a bowel movement this morning. Patient has been up and walking and denies any difficulty. Patient with incentive spirometer at the bedside and encourage the patient to continue using at least 10 times every hour while awake even in the outpatient setting. Discussed with the patient about resuming appropriate home medications and following up with primary care provider on discharge. Patient denies chest pain, shortness of breath, or palpitations. Patient is afebrile. Patient denies any nausea or vomiting and tolerated clear liquid diet. Review of systems: Constitutional: No reports of fatigue, fever, or chills Cardiovascular: No reports of chest pain or palpitations Respiratory: No reports of shortness of breath or cough GI: No reports of nausea, vomiting, or diarrhea, Reports passing gas and had a bowel movement today. : No reports of dysuria or retention Neurovascular: No reports of weakness or numbness All medications have been reviewed PHYSICAL EXAMINATION: GENERAL: The patient is alert and oriented x3, not in any acute distress. Obese HEENT: Pupils are round and equally reacting to light. EOMI. No scleral icterus. No conjunctival pallor. Normocephalic, atraumatic. No pharyngeal erythema. No thyromegaly. CARDIOVASCULAR: S1 and S2 present. No murmurs, rubs, or gallops. PULMONARY: Chest is clear to auscultation, no wheezing or crackles. ABDOMEN: Soft, nontender, nondistended, normoactive bowel sounds. No palpable organomegaly. MUSCULOSKELETAL: No joint swelling or deformity. EXTREMITIES: No cyanosis, clubbing, or pedal edema. NEUROLOGICAL: Gross neurological examination did not reveal any focal deficits. SKIN: No rashes. Assessment: -Asthma without any acute exacerbation at this time. Patient appears to have mild intermittent asthma. -Hypertension for which the patient is on losartan will be continued -Sleep apnea continue CPAP machine -Severe osteoarthritis -Hyperthyroidism patient was resumed on levothyroxin -DVT prophylaxis: She is on every 12 Lovenox which is appropriate dosing Plan: Recommend continue with current medications and management per general surgery services. Patient instructed to follow-up with primary care provider on discharge and also to continue using incentive spirometer at least 10 times every hour while awake. Patient anticipates being discharged today and will continue with current diet and recommendations per surgery. Patient to follow- up with general surgery in the outpatient setting as well. Will continue to follow during hospitalization. Thank you for this consultation. The impression and plan of care has been dictated by Amber Infante, Nurse Practitioner as directed. Dr. Wiliam MD I have performed a history and examination and MDM of this patient, discussed the same with the dictator, and agree with the dictator's assessment and plan as written ,documented as a scribe. Based on total visit time, I have performed more than 50% of the visit. Objective - Vital Signs Vital signs: Vital Signs Temp 98 F 10/29/21 07:03 Pulse 97 10/29/21 07:03 Resp 16 10/29/21 07:03 BP 123/68 10/29/21 07:03 Pulse Ox 97 10/29/21 08:41 Intake & Output 10/28/21 10/29/21 10/29/21 18:59 06:59 18:59 Weight 130.5 kg Other: Voiding Method Toilet Toilet # Voids 2 1 - Labs CBC & Chem 7: 10/28/21 03:09 10/28/21 03:09 Labs: Abnormal Lab Results - Last 24 Hours (Table) 10/28/21 Range/Units 03:09 Carbon Dioxide 16.2 L (20.0-27.5) mmol/L
== END 2021-10-29 13:16 | disposition home or self-care (01) | DRG 621 ==
LOC: 2ORMAIN 09:26 → 4SSUR 13:46
PROVIDERS: ADMIT Surgery; ATTEND Surgery
PROC: 0DB64Z3 Excision of Stomach, Percutaneous Endoscopic Approach, Vertical (ICD-10-PCS; principal; 2021-10-27 10:35)
DX: E66.01 Morbid (severe) obesity due to excess calories (principal); Z68.43 Body mass index [BMI] 50.0-59.9, adult; E05.90 Thyrotoxicosis, unspecified without thyrotoxic crisis or storm; G47.30 Sleep apnea, unspecified; I10 Essential (primary) hypertension; J45.20 Mild intermittent asthma, uncomplicated; K21.9 Gastro-esophageal reflux disease without esophagitis; K66.0 Peritoneal adhesions (postprocedural) (postinfection); M17.0 Bilateral primary osteoarthritis of knee; Z79.890 Hormone replacement therapy; Z79.899 Other long term (current) drug therapy; M10.9 Gout, unspecified; Z87.01 Personal history of pneumonia (recurrent); Z98.42 Cataract extraction status, left eye; Z98.41 Cataract extraction status, right eye; Z80.7 Family history of other malignant neoplasms of lymphoid, hematopoietic and related tissues; Z88.1 Allergy status to other antibiotic agents; Z88.5 Allergy status to narcotic agent
CPT/HCPCS: 74240; 80051; 82310; 82565; 83735; 84100; 84520; 85025; 88307; 88342; 94640; 94760

== ENCOUNTER → 2021-11-10 | Outpatient (CLI) | payer MEDICARE ==
--- NOTE | 2021-11-10 14:47 | FL ---
EXAMINATION TYPE: FL barium swallow DATE OF EXAM: 11/10/2021 CLINICAL INDICATION: 66-year-old female R1 3.10, dysphagia. Patient with lap band removed 2 years ago , sleeve gastrectomy placed 2 weeks ago with persistent trouble swallowing and dehydration. COMPARISON: 10/28/2021 Total Fluoroscopy Time: 1 minute 36 seconds 35 images obtained. FINDINGS: The patient took a total of 4 swallows of thin barium contrast. There is excessive distention noted o f the mid to distal esophagus with extensive disordered tertiary contractions throughout the esophagu s. There seems to be some mottled retained debris within the esophagus as well. After the 4 swallows, contrast accumulates up to the upper third chest level. Contrast crosses promptly across the GE junction and accumulates within the proximal most stomach. Th ere is no passage across the sleeve during the course of the exam. IMPRESSION: Relative severe obstruction/blockage along the proximal aspect of the sleeve. After only 4 swallows, contrast accumulates to the upper third chest level. There seems to be some residual ingested materia l within the esophagus as well.
== END | disposition home or self-care (01) ==
LOC: RADUSWWP 13:31
PROVIDERS: ATTEND Surgery
DX: K95.89 Other complications of other bariatric procedure (principal)
CPT/HCPCS: 74220